=== PATIENT | male | born 1945 | race Caucasian/White ===

== ENCOUNTER 2022-02-11 09:13 | Inpatient (IN) | payer MEDICARE ==
[2022-02-11] MEDS ORDERED: IPRATROPIUM 0.5 MG/2.5 ML NEBU INHALATION STA (09:20)
[2022-02-11] MEDS ORDERED: ALBUTEROL NEBULIZED 2.5 MG/3 ML INHALATION STA (09:20)
--- NOTE | 2022-02-11 09:50 | ED ---
General Adult HPI - General Chief complaint: Shortness of Breath Stated complaint: ARTHUR Time Seen by Provider: 02/11/22 09:14 Source: patient, EMS, RN notes reviewed, old records reviewed Mode of arrival: EMS Limitations: altered mental status - History of Present Illness Initial comments: 76-year-old male, poor historian presenting with dyspnea, confusion, and recently tested positive for coronavirus. Apparently the patient tested positive today. He is on oxygen at baseline secondary to COPD. Patient's home environment was questionable and the ability to take care of himself at home was brought up by paramedics. Patient himself does report cough and dyspnea. He has not been vaccinated against coronavirus. - Related Data Home Medications Medication Instructions Recorded Confirmed ALPRAZolam [Xanax] 2 mg PO BID 02/11/22 02/11/22 Gabapentin [Neurontin] 300 mg PO QID 02/11/22 02/11/22 HYDROcodone/APAP 10-325MG [[place] 1 tab PO TID 02/11/22 02/11/22 10-325] Ipratropium-Albuterol Nebulize 3 ml INHALATION RT-Q6H PRN 02/11/22 02/11/22 [Duoneb 0.5 mg-3 mg/3 ml Soln] Tamsulosin HCl [Flomax] 0.4 mg PO DAILY 02/11/22 02/11/22 carvediloL [Coreg] 25 mg PO BID 02/11/22 02/11/22 lisinopriL [Prinivil] 10 mg PO DAILY 02/11/22 02/11/22 predniSONE [Deltasone] 20 mg PO DAILY 02/11/22 02/11/22 Allergies Allergy/AdvReac Type Severity Reaction Status Date / Time Unable to Assess Allergy Verified 02/11/22 09:43 Review of Systems ROS Statement: Those systems with pertinent positive or pertinent negative responses have been documented in the HPI. ROS Other: All systems not noted in ROS Statement are negative. Past Medical History Past Medical History: Unable to Obtain, COPD History of Any Multi-Drug Resistant Organisms: None Reported Past Surgical History: No Surgical Hx Reported Past Psychological History: Unable to Obtain Smoking Status: Former smoker Past Alcohol Use History: None Reported Past Drug Use History: None Reported General Exam Limitations: no limitations General appearance: alert, in distress, cachectic Head exam: Present: atraumatic, normocephalic Eye exam: Present: normal appearance, PERRL ENT exam: Present: mucous membranes dry Neck exam: Present: normal inspection. Absent: tenderness, meningismus Respiratory exam: Present: respiratory distress, wheezes, decreased breath carter nds Cardiovascular Exam: Present: normal rhythm, tachycardia GI/Abdominal exam: Present: soft. Absent: distended, tenderness, guarding Extremities exam: Present: normal inspection, normal capillary refill. Absent: pedal edema, calf tenderness Neurological exam: Present: alert. Absent: motor sensory deficit Skin exam: Present: warm, dry, pallor Course Vital Signs 02/11/22 02/11/22 02/11/22 09:16 09:59 10:11 Temperature 98.2 F Pulse Rate 112 H 105 H 102 H Respiratory 30 H 32 H Rate Blood Pressure 101/64 O2 Sat by Pulse 97 Oximetry EKG Findings - EKG Comments: EKG Findings:: Sinus tachycardia ventricular rate of 110, VA interval 151, QRS duration 105, QTC [address] segment elevation. Medical Decision Making - Medical Decision Making 76-year-old male history of oxygen dependent COPD presenting with cough, dyspnea, worsening respiratory complaints. Patient requires increased oxygen supplementation. He does currently have coronavirus test positive today. He has diminished air entry bilaterally with moderate respiratory distress. Treated with albuterol, Atrovent, steroids. Will be admitted for COPD exacerbation. Initially on chest x-ray does show concern for fluid overload with significantly elevated BNP at 7600. He is given a dose Lasix in the emergency department as well. Admitted for multifactorial dyspnea, coronavirus pneumonia, pulmonary edema, COPD. Case discussed with [facility] physician [facility]. - Lab Data Result diagrams: 02/11/22 09:59 02/11/22 09:59 Lab Results 02/11/22 02/11/22 02/11/22 Range/Units 09:59 09:59 09:59 WBC 12.5 H (3.8-10.6) k/uL RBC 3.95 L (4.30-5.90) m/uL Hgb 11.9 L (13.0-17.5) gm/dL Hct 36.8 L (39.0-53.0) % MCV 93.2 (80.0-100.0) fL MCH 30.2 (25.0-35.0) pg MCHC 32.4 (31.0-37.0) g/dL RDW 13.9 (11.5-15.5) % Plt Count 252 (150-450) k/uL MPV 8.0 Neutrophils % 88 % Lymphocytes % 7 % Monocytes % 3 % Eosinophils % 0 % Basophils % 0 % Neutrophils # 11.1 H (1.3-7.7) k/uL Lymphocytes # 0.9 L (1.0-4.8) k/uL Monocytes # 0.4 (0-1.0) k/uL Eosinophils # 0.0 (0-0.7) k/uL Basophils # 0.0 (0-0.2) k/uL PT 11.9 (9.0-12.0) sec INR 1.1 (<1.2) APTT 26.3 (22.0-30.0) sec VBG pH (7.31-7.41) VBG pCO2 (37-51) mmHg VBG HCO3 (24-28) mmol/L Sodium 130 L (137-145) mmol/L Potassium 3.9 (3.5-5.1) mmol/L Chloride 92 L (98-107) mmol/L Carbon Dioxide 25 (22-30) mmol/L Anion Gap 13 mmol/L BUN 24 H (9-20) mg/dL Creatinine 1.06 (0.66-1.25) mg/dL Est GFR (CKD-EPI)AfAm 80 (>60 ml/min/1.73 sqM) Est GFR (CKD-EPI)NonAf 69 (>60 ml/min/1.73 sqM) Glucose 75 (74-99) mg/dL Plasma Lactic Acid Rogerio (0.7-2.0) mmol/L Calcium 7.5 L (8.4-10.2) mg/dL Magnesium 1.3 L (1.6-2.3) mg/dL Total Bilirubin 0.7 (0.2-1.3) mg/dL AST 51 (17-59) U/L ALT 16 (4-49) U/L Alkaline Phosphatase 38 (38-126) U/L NT-Pro-B Natriuret Pep pg/mL Total Protein 5.9 L (6.3-8.2) g/dL Albumin 3.4 L (3.5-5.0) g/dL Coronavirus (PCR) (Not Detectd) 02/11/22 02/11/22 02/11/22 Range/Units 09:59 09:59 09:59 WBC (3.8-10.6) k/uL RBC (4.30-5.90) m/uL Hgb (13.0-17.5) gm/dL Hct (39.0-53.0) % MCV (80.0-100.0) fL MCH (25.0-35.0) pg MCHC (31.0-37.0) g/dL RDW (11.5-15.5) % Plt Count (150-450) k/uL MPV Neutrophils % % Lymphocytes % % Monocytes % % Eosinophils % % Basophils % % Neutrophils # (1.3-7.7) k/uL Lymphocytes # (1.0-4.8) k/uL Monocytes # (0-1.0) k/uL Eosinophils # (0-0.7) k/uL Basophils # (0-0.2) k/uL PT (9.0-12.0) sec INR (<1.2) APTT (22.0-30.0) sec VBG pH (7.31-7.41) VBG pCO2 (37-51) mmHg VBG HCO3 (24-28) mmol/L Sodium (137-145) mmol/L Potassium (3.5-5.1) mmol/L Chloride (98-107) mmol/L Carbon Dioxide (22-30) mmol/L Anion Gap mmol/L BUN (9-20) mg/dL Creatinine (0.66-1.25) mg/dL Est GFR (CKD-EPI)AfAm (>60 ml/min/1.73 sqM) Est GFR (CKD-EPI)NonAf (>60 ml/min/1.73 sqM) Glucose (74-99) mg/dL Plasma Lactic Acid Rogerio 1.0 (0.7-2.0) mmol/L Calcium (8.4-10.2) mg/dL Magnesium (1.6-2.3) mg/dL Total Bilirubin (0.2-1.3) mg/dL AST (17-59) U/L ALT (4-49) U/L Alkaline Phosphatase (38-126) U/L NT-Pro-B Natriuret Pep 7610 pg/mL Total Protein (6.3-8.2) g/dL Albumin (3.5-5.0) g/dL Coronavirus (PCR) Detected A (Not Detectd) 02/11/22 Range/Units 09:59 WBC (3.8-10.6) k/uL RBC (4.30-5.90) m/uL Hgb (13.0-17.5) gm/dL Hct (39.0-53.0) % MCV (80.0-100.0) fL MCH (25.0-35.0) pg MCHC (31.0-37.0) g/dL RDW (11.5-15.5) % Plt Count (150-450) k/uL MPV Neutrophils % % Lymphocytes % % Monocytes % % Eosinophils % % Basophils % % Neutrophils # (1.3-7.7) k/uL Lymphocytes # (1.0-4.8) k/uL Monocytes # (0-1.0) k/uL Eosinophils # (0-0.7) k/uL Basophils # (0-0.2) k/uL PT (9.0-12.0) sec INR (<1.2) APTT (22.0-30.0) sec VBG pH 7.37 (7.31-7.41) VBG pCO2 51 (37-51) mmHg VBG HCO3 29 H (24-28) mmol/L Sodium (137-145) mmol/L Potassium (3.5-5.1) mmol/L Chloride (98-107) mmol/L Carbon Dioxide (22-30) mmol/L Anion Gap mmol/L BUN (9-20) mg/dL Creatinine (0.66-1.25) mg/dL Est GFR (CKD-EPI)AfAm (>60 ml/min/1.73 sqM) Est GFR (CKD-EPI)NonAf (>60 ml/min/1.73 sqM) Glucose (74-99) mg/dL Plasma Lactic Acid Rogerio (0.7-2.0) mmol/L Calcium (8.4-10.2) mg/dL Magnesium (1.6-2.3) mg/dL Total Bilirubin (0.2-1.3) mg/dL AST (17-59) U/L ALT (4-49) U/L Alkaline Phosphatase (38-126) U/L NT-Pro-B Natriuret Pep pg/mL Total Protein (6.3-8.2) g/dL Albumin (3.5-5.0) g/dL Coronavirus (PCR) (Not Detectd) Critical Care Time Critical Care Time: Yes Total Critical Care Time: 35 Disposition Clinical Impression: Acute exacerbation of chronic obstructive pulmonary disease, COVID-19 Disposition: ADMITTED IP TO THIS [facility] Condition: Stable Is patient prescribed a controlled substance at d/c from ED?: No Referrals: Nonstaff,Physician [REFERRING] - 1-2 days Time of Disposition: 11:55
[2022-02-11 11:03] LABS: VBG PH 7.37 (7.31-7.41)
[2022-02-11 11:06] LABS: Albumin 3.4 g/dL (3.5-5.0); Calcium 7.5 mg/dL (8.4-10.2); Magnesium 1.3 mg/dL (1.6-2.3); Potassium 3.9 mmol/L (3.5-5.1); Total Bilirubin 0.7 mg/dL (0.2-1.3); Total Protein 5.9 g/dL (6.3-8.2)
[2022-02-11 11:10] LABS: Basophils % (A) 0 %; Eosinophils % (A) 0 %; HCT 36.8 % (39.0-53.0); HGB 11.9 gm/dL (13.0-17.5); INR 1.1 (<1.2); Lymphocytes # (A) 0.9 k/uL (1.0-4.8); Lymphocytes % (A) 7 %; MCH 30.2 pg (25.0-35.0); MCHC 32.4 g/dL (31.0-37.0); MCV 93.2 fL (80.0-100.0); Monocytes # (A) 0.4 k/uL (0-1.0); Monocytes % (A) 3 %; Neutrophils # (A) 11.1 k/uL (1.3-7.7); Neutrophils % (A) 88 %; Partial Thromboplastin Time 26.3 sec (22.0-30.0); Platelet Count 252 k/uL (150-450); Prothrombin Time 11.9 sec (9.0-12.0); RBC 3.95 m/uL (4.30-5.90); RDW 13.9 % (11.5-15.5); WBC 12.5 k/uL (3.8-10.6)
--- NOTE | 2022-02-11 11:20 | XR ---
EXAMINATION TYPE: XR chest 1V portable DATE OF EXAM: 02/11/2022 Comparison: None Clinical History: 76-year-old male cough/krissy Findings: Patient is rotated towards the right. Heart mildly enlarged. Diffuse interstitial and patchy opacitie s. Possible trace effusions. Patient's chin obscures the apices. Impression: Rotated exam. Mild cardiomegaly, diffuse interstitial changes, patchy bilateral opacities, and likely trace effusions. Correlate for CHF with patchy pulmonary edema. Underlying infiltrate should be incl uded on a clinical basis.
[2022-02-11] MEDS ORDERED: FUROSEMIDE 10 MG/ML 2 ML VIAL IV STA (11:48)
[2022-02-11] MEDS ORDERED: ACETAMINOPHEN TAB 325 MG TAB PO PRN (11:52)
[2022-02-11] MEDS ORDERED: NALOXONE 0.4 MG/ML 1 ML VIAL IV PRN ×2 (11:52→15:49)
[2022-02-11] MEDS: IPRATROPIUM-ALBUTEROL 3 ML NEB INHALATION SCH ×2 (13:59→15:09)
[2022-02-11] MEDS: DEXAMETHASONE SOD PHOSPHATE 10 MG/ML 1 ML VIAL IV STA ×2 (15:55→15:59)
[2022-02-11] MEDS ORDERED: FUROSEMIDE 10 MG/ML 2 ML VIAL IV ONE (15:59)
--- NOTE | 2022-02-11 16:04 | P.HPIM ---
History of Present Illness H&P Date: 02/11/22 Chief Complaint: sob 76-year-old male, with history of COPD, hypertension, BPH, poor historian, not sure if he is reliable presenting with dyspnea, confusion, and recently tested positive for coronavirus. He was in contact with his who was sick with it. He has been having cough as well as increasing shortness of breath. He uses oxygen at 2 L at baseline for his COPD. He denied any chest pain. No other pain. No nausea or vomiting. No fevers or chills. No focal weakness or numbness. No diarrhea. Also denied urinary symptoms. In the emergency department he was found to be significantly hypoxic with O2 saturations in the 70s, was placed under percent nonrebreather mask. Labs are remarkable for leukocytosis at 12.5, hemoglobin 11.9, hematocrit 36.8, platelet count 252, sodium 130, potassium 3.9, chloride 92, bicarb 25, BUN 24, creatinine 1.06, BNP 7600, magnesium 1.3, calcium 7.5. Chest x-ray showed cardiomegaly with diffuse interstitial opacities consistent with CHF versus pneumonia. Covid tested positive. - Review of Systems Unobtainable due to confusion. Past Medical History Past Medical History: Unable to Obtain, COPD History of Any Multi-Drug Resistant Organisms: None Reported Past Surgical History: No Surgical Hx Reported Past Psychological History: Unable to Obtain Smoking Status: Former smoker Past Alcohol Use History: None Reported Past Drug Use History: None Reported Medications and Allergies Home Medications Medication Instructions Recorded Confirmed Type ALPRAZolam [Xanax] 2 mg PO BID 02/11/22 02/11/22 History Gabapentin [Neurontin] 300 mg PO QID 02/11/22 02/11/22 History HYDROcodone/APAP 10-325MG [[place] 1 tab PO TID 02/11/22 02/11/22 History 10-325] Ipratropium-Albuterol Nebulize 3 ml INHALATION RT-Q6H PRN 02/11/22 02/11/22 History [Duoneb 0.5 mg-3 mg/3 ml Soln] Tamsulosin HCl [Flomax] 0.4 mg PO DAILY 02/11/22 02/11/22 History carvediloL [Coreg] 25 mg PO BID 02/11/22 02/11/22 History lisinopriL [Prinivil] 10 mg PO DAILY 02/11/22 02/11/22 History predniSONE [Deltasone] 20 mg PO DAILY 02/11/22 02/11/22 History Allergies Allergy/AdvReac Type Severity Reaction Status Date / Time Unable to Assess Allergy Verified 02/11/22 09:43 Physical Exam Vitals: Vital Signs Temp Pulse Resp BP Pulse Ox 02/11/22 15:20 96 02/11/22 15:09 98 02/11/22 14:00 101 H 21 126/62 02/11/22 13:30 98 24 103/65 99 02/11/22 13:00 92 23 96/58 100 02/11/22 12:30 96 22 110/61 100 02/11/22 12:00 98 18 103/60 100 02/11/22 10:11 102 H 02/11/22 09:59 105 H 32 H 02/11/22 09:16 98.2 F 112 H 30 H 101/64 97 Intake and Output 02/11/22 02/11/22 02/11/22 06:59 14:59 22:59 Other: Weight 71.668 kg Constitutional: No acute distress, conversant, pleasant Eyes:Anicteric sclerae, moist conjunctiva, no lid-lag, PERRLA, ENMT: Oropharynx clear, no erythema, exudates Neck: Supple, FROM, no masses, or JVD, No carotid bruits, No thyromegaly Lungs: Bilateral wheezing and rhonchi, Clear to percussion, Normal respiratory effort, no accessory muscle use Cardiovascular: Heart regular in rate and rhythm, No murmurs, gallops, or rubs, No peripheral edema Abdominal: Soft, Nontender, no guarding, rebound or rigidity, Normoactive bowel sounds, No hepatomegaly, No splenomegaly, No palpable mass Skin: Normal temperature, tone, texture, turgor, no induration, No subcutaneous nodules, No rash, lesions, No ulcers Extremities: No digital cyanosis, No clubbing, Pedal pulses intact and symmetrical, Radial pulses intact and symmetrical, No calf tenderness Psychiatric: Alert and oriented to person, place and time, appropriate affect, intact judgement Neuro: Muscles Strength 5/5 in all 4 extremities, Sensation to light touch grossly present throughout, Cranial nerves II-XII grossly intact, no focal sensory deficits Results CBC & Chem 7: 02/11/22 09:59 02/11/22 09:59 Labs: Abnormal Lab Results - Last 24 Hours (Table) 02/11/22 02/11/22 02/11/22 Range/Units 09:59 09:59 09:59 WBC 12.5 H (3.8-10.6) k/uL RBC 3.95 L (4.30-5.90) m/uL Hgb 11.9 L (13.0-17.5) gm/dL Hct 36.8 L (39.0-53.0) % Neutrophils # 11.1 H (1.3-7.7) k/uL Lymphocytes # 0.9 L (1.0-4.8) k/uL VBG HCO3 (24-28) mmol/L Sodium 130 L (137-145) mmol/L Chloride 92 L (98-107) mmol/L BUN 24 H (9-20) mg/dL Calcium 7.5 L (8.4-10.2) mg/dL Magnesium 1.3 L (1.6-2.3) mg/dL Total Protein 5.9 L (6.3-8.2) g/dL Albumin 3.4 L (3.5-5.0) g/dL Coronavirus (PCR) Detected A (Not Detectd) 02/11/22 Range/Units 09:59 WBC (3.8-10.6) k/uL RBC (4.30-5.90) m/uL Hgb (13.0-17.5) gm/dL Hct (39.0-53.0) % Neutrophils # (1.3-7.7) k/uL Lymphocytes # (1.0-4.8) k/uL VBG HCO3 29 H (24-28) mmol/L Sodium (137-145) mmol/L Chloride (98-107) mmol/L BUN (9-20) mg/dL Calcium (8.4-10.2) mg/dL Magnesium (1.6-2.3) mg/dL Total Protein (6.3-8.2) g/dL Albumin (3.5-5.0) g/dL Coronavirus (PCR) (Not Detectd) Assessment and Plan Plan: Acute on chronic hypoxemic respiratory failure Acute COPD exacerbation COVID-19 pneumonia Admit to inpatient Check procalcitonin, blood cultures Oxygen to keep saturations above 92% Pulmonary consultation Steroids and bronchodilators Acute CHF exacerbation with elevated BNP Unknown type Check echocardiogram Lasix 20 mg IV 1 Hypomagnesemia Replace Follow in a.m. Essential hypertension Anxiety Stable Resume meds DVT prophylaxis Lovenox subcu Admit to inpatient, expected length of stay within 2 midnights
[2022-02-11] MEDS: HYDROcodone/APAP 10-325MG 1 EACH TAB PO SCH ×2 (16:54→21:40)
[2022-02-11] MEDS: GABAPENTIN 300 MG CAP PO SCH ×2 (16:56→21:40)
[2022-02-11] MEDS: MAGNESIUM SULFATE-D5W PMX 1 GM in DEXTROSE/WATER 1 100ML.BAG IVPB SCH ×2 (17:48→20:06)
[2022-02-11] MEDS: carvediloL 12.5 MG TAB PO SCH (17:48)
[2022-02-11] MEDS: methylPREDNISolone SOD SUCCI 125 MG/2 ML VIAL IV SCH ×2 (17:49→23:27)
[2022-02-11] MEDS: ENOXAPARIN 40 MG/0.4 ML SYRINGE SQ SCH (17:51)
[2022-02-11] MEDS: TIOTROPIUM 2.5 MCG INHALER INHALATION SCH (20:01)
[2022-02-11] MEDS: ALBUTEROL HFA INHALER INHALATION SCH (20:02)
[2022-02-11] MEDS ORDERED: FUROSEMIDE 10 MG/ML 2 ML VIAL IV SCH (21:00)
[2022-02-12] MEDS: ALBUTEROL HFA INHALER INHALATION SCH ×6 (00:40→19:16)
[2022-02-12 00:57] LABS: ABG PCO2 53 mmHg (35-45); ABG PH 7.34 (7.35-7.45); ABG PO2 70 mmHg (83-108); Allen Test Performed? Yes
[2022-02-12 00:58] LABS: ABG Base Excess 2.9 mmol/L; ABG HCO3 29 mmol/L (21-25); ABG TCO2 30 mmol/L (19-24)
[2022-02-12] MEDS: carvediloL 12.5 MG TAB PO SCH ×2 (06:53→15:36)
[2022-02-12 08:39] LABS: Basophils % (A) 0 %; Eosinophils % (A) 0 %; HCT 36.8 % (39.0-53.0); HGB 11.7 gm/dL (13.0-17.5); Lymphocytes # (A) 0.4 k/uL (1.0-4.8); Lymphocytes % (A) 5 %; MCH 30.2 pg (25.0-35.0); MCHC 31.9 g/dL (31.0-37.0); MCV 94.9 fL (80.0-100.0); Mean Platelet Volume 7.5; Monocytes # (A) 0.2 k/uL (0-1.0); Monocytes % (A) 2 %; Neutrophils # (A) 9.1 k/uL (1.3-7.7); Neutrophils % (A) 93 %; Platelet Count 236 k/uL (150-450); RBC 3.88 m/uL (4.30-5.90); RDW 14.1 % (11.5-15.5); WBC 9.8 k/uL (3.8-10.6)
[2022-02-12 08:42] LABS: ALT 24 U/L (4-49); AST 74 U/L (17-59); African American GFR (CKD) >90 (>60 ml/min/1.73 sqM); Albumin 3.1 g/dL (3.5-5.0); Alkaline Phosphatase 45 U/L (38-126); Anion Gap 11 mmol/L; Blood Urea Nitrogen 26 mg/dL (9-20); Calcium 7.4 mg/dL (8.4-10.2); Carbon Dioxide 29 mmol/L (22-30); Chloride 93 mmol/L (98-107); Glucose 111 mg/dL (74-99); Magnesium 1.9 mg/dL (1.6-2.3); Non-African American GFR(CKD) 84 (>60 ml/min/1.73 sqM); Sodium 133 mmol/L (137-145); Total Bilirubin 0.6 mg/dL (0.2-1.3); Total Protein 5.6 g/dL (6.3-8.2)
[2022-02-12] MEDS: TIOTROPIUM 2.5 MCG INHALER INHALATION SCH (08:51)
[2022-02-12] MEDS: FUROSEMIDE 10 MG/ML 4 ML VIAL IV SCH ×2 (08:55→20:34)
[2022-02-12] MEDS: methylPREDNISolone SOD SUCCI 125 MG/2 ML VIAL IV SCH ×2 (08:55→15:36)
[2022-02-12] MEDS: HYDROcodone/APAP 10-325MG 1 EACH TAB PO SCH ×3 (08:55→20:33)
[2022-02-12] MEDS: ENOXAPARIN 40 MG/0.4 ML SYRINGE SQ SCH (08:55)
[2022-02-12] MEDS: TAMSULOSIN 0.4 MG CAP.ER.24H PO SCH (08:55)
[2022-02-12] MEDS: lisinopriL 10 MG TAB PO SCH (08:56)
[2022-02-12] MEDS: GABAPENTIN 300 MG CAP PO SCH ×4 (08:56→20:34)
--- NOTE | 2022-02-12 12:36 | CA ---
Transthoracic Echo Report Name: Erik Mckeon Age: 76 Gender: M : 1945 Exam Date: 02/12/2022 09:41 Exam Location: [place] [facility] Ht (in): 68 Wt (lb): 154 Ordering Physician: Pankaj Aceves MD Attending/Referring Phys: [id number], Ketan Console Attendant Vita Coombs RDCS Procedure CPT: Indications: chf Cardiac Hx: Covid, severe copd Technical Quality: Poor Contrast 1: Total Dose (mL): Contrast 2: Total Dose (mL): MEASUREMENTS (Male / Female) Normal Values 2D ECHO LV Diastolic Diameter PLAX 2.2 cm 4.2 - 5.9 / 3.9 - 5.3 cm LV Systolic Diameter PLAX 1.2 cm IVS Diastolic Thickness 1.0 cm 0.6 - 1.0 / 0.6 - 0.9 cm LVPW Diastolic Thickness 1.4 cm 0.6 - 1.0 / 0.6 - 0.9 cm LV Relative Wall Thickness 1.1 DOPPLER TR Peak Velocity 219.2 cm/s TR Peak Gradient 19.2 mmHg Right Ventricular Systolic Press 24.2 mmHg FINDINGS Left Ventricle Left ventricular ejection fraction is estimated at 55-60 %. Right Ventricle Limited images however right ventricle appears mild to moderately dilated. Right Atrium Left Atrium Mitral Valve Aortic Valve Tricuspid Valve Pulmonic Valve Pericardium No pericardial effusion. Aorta CONCLUSIONS Limited 2-D echo. Normal left ventricular EF 55-60% Mild to moderately dilated right ventricle No pericardial effusion Previewed by: Dr. Nish Cross DO (Electronically Signed) Final Date: 12 February 2022 12:36
[2022-02-12] MEDS: LEVOFLOXACIN 500 MG TAB PO SCH (13:08)
--- NOTE | 2022-02-12 14:12 | P.PN ---
Subjective Progress Note Date: 02/12/22 Principal diagnosis: sob Patient is feeling a lot better today compared to yesterday. He is still having a little shortness of breath. No chest pain. No fevers or chills. Oxygen supplements down to 5 L from 100% yesterday. He is on 2 L at home. Objective - Vital Signs Vital signs: Vital Signs Temp 97.8 F 02/12/22 08:00 Pulse 79 02/12/22 08:00 Resp 18 02/12/22 12:16 BP 122/60 02/12/22 08:00 Pulse Ox 93 L 02/12/22 08:51 FiO2 Intake & Output 02/11/22 02/12/22 02/12/22 18:59 06:59 18:59 Weight 71.668 kg 70 kg Other: # Voids 1 - Exam Constitutional: No acute distress, conversant, pleasant Eyes:Anicteric sclerae, moist conjunctiva, no lid-lag, PERRLA, ENMT: Oropharynx clear, no erythema, exudates Neck: Supple, FROM, no masses, or JVD, No carotid bruits, No thyromegaly Lungs: Bilateral rhonchi and scattered wheezes, Clear to percussion, Normal respiratory effort, no accessory muscle use Cardiovascular: Heart regular in rate and rhythm, No murmurs, gallops, or rubs, No peripheral edema Abdominal: Soft, Nontender, no guarding, rebound or rigidity, Normoactive bowel sounds, No hepatomegaly, No splenomegaly, No palpable mass Skin: Normal temperature, tone, texture, turgor, no induration, No subcutaneous nodules, No rash, lesions, No ulcers Extremities: No digital cyanosis, No clubbing, Pedal pulses intact and symmetrical, Radial pulses intact and symmetrical, No calf tenderness Psychiatric: Alert and oriented to person, place and time, appropriate affect, intact judgement Neuro: Muscles Strength 5/5 in all 4 extremities, Sensation to light touch grossly present throughout, Cranial nerves II-XII grossly intact, no focal sensory deficits - Labs CBC & Chem 7: 02/12/22 07:41 02/12/22 07:41 Labs: Abnormal Lab Results - Last 24 Hours (Table) 02/11/22 02/11/22 02/12/22 Range/Units 17:07 17:07 00:44 RBC (4.30-5.90) m/uL Hgb (13.0-17.5) gm/dL Hct (39.0-53.0) % Neutrophils # (1.3-7.7) k/uL Lymphocytes # (1.0-4.8) k/uL ABG pH 7.34 L (7.35-7.45) ABG pCO2 53 H (35-45) mmHg ABG pO2 70 L (83-108) mmHg ABG HCO3 29 H (21-25) mmol/L ABG Total CO2 30 H (19-24) mmol/L ABG O2 Saturation 93.0 L (94-97) % Sodium (137-145) mmol/L Chloride (98-107) mmol/L BUN (9-20) mg/dL Glucose (74-99) mg/dL Calcium (8.4-10.2) mg/dL AST (17-59) U/L Troponin I 1.670 H* (0.000-0.034) ng/mL Total Protein (6.3-8.2) g/dL Albumin (3.5-5.0) g/dL Procalcitonin 35.70 H (0.02-0.09) ng/mL 02/12/22 02/12/22 Range/Units 07:41 07:41 RBC 3.88 L (4.30-5.90) m/uL Hgb 11.7 L (13.0-17.5) gm/dL Hct 36.8 L (39.0-53.0) % Neutrophils # 9.1 H (1.3-7.7) k/uL Lymphocytes # 0.4 L (1.0-4.8) k/uL ABG pH (7.35-7.45) ABG pCO2 (35-45) mmHg ABG pO2 (83-108) mmHg ABG HCO3 (21-25) mmol/L ABG Total CO2 (19-24) mmol/L ABG O2 Saturation (94-97) % Sodium 133 L (137-145) mmol/L Chloride 93 L (98-107) mmol/L BUN 26 H (9-20) mg/dL Glucose 111 H (74-99) mg/dL Calcium 7.4 L (8.4-10.2) mg/dL AST 74 H (17-59) U/L Troponin I (0.000-0.034) ng/mL Total Protein 5.6 L (6.3-8.2) g/dL Albumin 3.1 L (3.5-5.0) g/dL Procalcitonin (0.02-0.09) ng/mL Assessment and Plan Plan: Acute on chronic hypoxemic respiratory failure Acute COPD exacerbation COVID-19 pneumonia Procalcitonin elevated levaquin added 02/12 Follow blood cultures Oxygen to keep saturations above 92% Pulmonary following Steroids and bronchodilators Acute diastolic CHF exacerbation with elevated BNP Echocardiogram showing normal EF with right sided elevated pressures likely due to copd Lasix 40 mg IV bid Hypomagnesemia Replaced Essential hypertension Anxiety Stable Resume meds DVT prophylaxis Lovenox subcu
--- NOTE | 2022-02-12 14:17 | P.CNPUL ---
History of Present Illness Consult date: 02/12/22 Requesting physician: Pankaj Aceves Reason for consult: dyspnea Chief complaint: Shortness of breath, weakness History of present illness: This is a 76-year-old male patient was a poor historian was brought into the emergency room yesterday with confusion, shortness of breath and positive for COVID-19. He has not vaccinated. His is also positive and hospitalized here. He has a history of oxygen dependent COPD and, hypertension, BPH, anxiety. Chest x-ray reveals mild cardiomegaly, diffuse interstitial changes, patchy bilateral opacities and trace effusions. Echocardiogram revealed normal ejection fraction 55-60%. White count 9.8. Hemoglobin 11.7. Sodium 133. Potassium 4.0. Bicarb 29. BUN 26. Creatinine 0.90. Troponin 1.67. Pro- calcitonin 35.7. Ornelas virus by PCR positive. Arterial blood gases were drawn on 40% FiO2 with a P O2 of 70, pCO2 53, pH 7.34. He is seen in consultation on the selective care unit. He is currently sitting up in bed. Awake and alert. Confused at times. Difficult to obtain accurate information from him. He is currently maintaining O2 saturations in the low 90s on 5 L high flow nasal cannula. He is afebrile. Hemodynamically stable. Review of Systems ROS unobtainable: due to mental status Past Medical History Past Medical History: Unable to Obtain, COPD History of Any Multi-Drug Resistant Organisms: None Reported Past Surgical History: No Surgical Hx Reported Past Anesthesia/Blood Transfusion Reactions: No Reported Reaction Past Psychological History: Unable to Obtain Smoking Status: Former smoker Past Alcohol Use History: None Reported Past Drug Use History: None Reported Medications and Allergies Home Medications Medication Instructions Recorded Confirmed Type ALPRAZolam [Xanax] 2 mg PO BID 02/11/22 02/11/22 History Gabapentin [Neurontin] 300 mg PO QID 02/11/22 02/11/22 History HYDROcodone/APAP 10-325MG [[place] 1 tab PO TID 02/11/22 02/11/22 History 10-325] Ipratropium-Albuterol Nebulize 3 ml INHALATION RT-Q6H PRN 02/11/22 02/11/22 History [Duoneb 0.5 mg-3 mg/3 ml Soln] Tamsulosin HCl [Flomax] 0.4 mg PO DAILY 02/11/22 02/11/22 History carvediloL [Coreg] 25 mg PO BID 02/11/22 02/11/22 History lisinopriL [Prinivil] 10 mg PO DAILY 02/11/22 02/11/22 History predniSONE [Deltasone] 20 mg PO DAILY 02/11/22 02/11/22 History Allergies Allergy/AdvReac Type Severity Reaction Status Date / Time Unable to Assess Allergy Verified 02/11/22 09:43 Physical Exam Vitals: Vital Signs Temp Pulse Pulse Resp BP BP Pulse Ox 02/12/22 12:16 18 02/12/22 08:51 93 L 02/12/22 08:00 97.8 F 79 18 122/60 91 L 02/12/22 04:00 98.0 F 80 20 140/64 90 L 02/12/22 00:42 22 02/12/22 00:00 97.6 F 76 22 101/54 91 L 02/11/22 22:00 110 H 19 112/70 95 02/11/22 20:02 91 L 02/11/22 20:00 98.2 F 117 H 19 110/68 94 L 02/11/22 18:18 97.8 F 63 18 107/70 88 L 02/11/22 15:20 96 02/11/22 15:09 98 Intake and Output 02/11/22 02/12/22 02/12/22 22:59 06:59 14:59 Other: # Voids 1 Weight 71.668 kg 70 kg GENERAL EXAM: Alert, confused, disheveled, 76-year-old male patient, 5 liters nasal cannula, fairly comfortable in no apparent distress. HEAD: Normocephalic. EYES: Normal reaction of pupils, equal size. NOSE: Clear with pink turbinates. THROAT: No erythema or exudates. NECK: No masses, no JVD. CHEST: No chest wall deformity. LUNGS: Equal air entry with crackles in the bilateral bases. CVS: S1 and S2 normal with no audible murmur, regular rhythm. ABDOMEN: No hepatosplenomegaly, normal bowel sounds, no guarding or rigidity. SPINE: No scoliosis or deformity SKIN: No rashes CENTRAL NERVOUS SYSTEM: No focal deficits, tone is normal in all 4 extremities. EXTREMITIES: There is no peripheral edema. No clubbing, no cyanosis. Peripheral pulses are intact. Results - Laboratory Findings CBC and BMP: 02/12/22 07:41 02/12/22 07:41 ABG ABG pH 7.34 (7.35-7.45) L 02/12/22 00:44 ABG pCO2 53 mmHg (35-45) H 02/12/22 00:44 ABG pO2 70 mmHg (83-108) L 02/12/22 00:44 ABG O2 Saturation 93.0 % (94-97) L 02/12/22 00:44 PT/INR, D-dimer PT 11.9 sec (9.0-12.0) 02/11/22 09:59 INR 1.1 (<1.2) 02/11/22 09:59 Abnormal lab findings: Abnormal Labs 02/11/22 02/11/22 02/11/22 09:59 09:59 09:59 WBC 12.5 H RBC 3.95 L Hgb 11.9 L Hct 36.8 L Neutrophils # 11.1 H Lymphocytes # 0.9 L ABG pH ABG pCO2 ABG pO2 ABG HCO3 ABG Total CO2 ABG O2 Saturation VBG HCO3 Sodium 130 L Chloride 92 L BUN 24 H Glucose Calcium 7.5 L Magnesium 1.3 L AST Troponin I Total Protein 5.9 L Albumin 3.4 L Procalcitonin Coronavirus (PCR) Detected A 02/11/22 02/11/22 02/11/22 09:59 17:07 17:07 WBC RBC Hgb Hct Neutrophils # Lymphocytes # ABG pH ABG pCO2 ABG pO2 ABG HCO3 ABG Total CO2 ABG O2 Saturation VBG HCO3 29 H Sodium Chloride BUN Glucose Calcium Magnesium AST Troponin I 1.670 H* Total Protein Albumin Procalcitonin 35.70 H Coronavirus (PCR) 02/12/22 02/12/22 02/12/22 00:44 07:41 07:41 WBC RBC 3.88 L Hgb 11.7 L Hct 36.8 L Neutrophils # 9.1 H Lymphocytes # 0.4 L ABG pH 7.34 L ABG pCO2 53 H ABG pO2 70 L ABG HCO3 29 H ABG Total CO2 30 H ABG O2 Saturation 93.0 L VBG HCO3 Sodium 133 L Chloride 93 L BUN 26 H Glucose 111 H Calcium 7.4 L Magnesium AST 74 H Troponin I Total Protein 5.6 L Albumin 3.1 L Procalcitonin Coronavirus (PCR) - Diagnostic Findings Chest x-ray: image reviewed Assessment and Plan Assessment: Generalized weakness and confusion secondary to COVID-19 infection, cannot rule out underlying bacterial infection with pro-calcitonin 35.7 Acute on chronic hypoxemic respiratory failure secondary to COVID-19 pneumonia/diastolic congestive heart failure Elevated troponin. Limited echocardiogram revealed preserved left ventricular systolic function Advanced oxygen-dependent chronic obstructive pulmonary disease Hypertension History of anxiety BPH Plan: The patient was seen and evaluated Chest x-ray, echo, labs and medications reviewed Continue Symbicort, Spiriva, albuterol, IV Solu-Medrol Continue Lasix 40 mg IV every 12 hours Add Levaquin 500 mg daily Check a d-dimer Lovenox for DVT prophylaxis Repeat troponin Urinalysis Titrate the FiO2 as tolerated We will continue to follow and make further recommendations based on his clinical status I have personally seen and examined the patient, performed the documentation and the assessment and plan as written. Number of minutes spent on the visit: 20.
[2022-02-12] MEDS: SYMBICORT 160-4.5 MCG INHALER INHALATION SCH (19:16)
[2022-02-13] MEDS: methylPREDNISolone SOD SUCCI 125 MG/2 ML VIAL IV SCH ×3 (00:44→14:27)
[2022-02-13] MEDS: carvediloL 12.5 MG TAB PO SCH ×2 (06:34→14:27)
[2022-02-13] MEDS: GABAPENTIN 300 MG CAP PO SCH ×4 (09:03→21:03)
[2022-02-13] MEDS: FUROSEMIDE 10 MG/ML 4 ML VIAL IV SCH ×2 (09:03→21:03)
[2022-02-13] MEDS: LEVOFLOXACIN 500 MG TAB PO SCH (09:03)
[2022-02-13] MEDS: HYDROcodone/APAP 10-325MG 1 EACH TAB PO SCH ×3 (09:04→21:03)
[2022-02-13] MEDS: ENOXAPARIN 40 MG/0.4 ML SYRINGE SQ SCH (09:04)
[2022-02-13] MEDS: TAMSULOSIN 0.4 MG CAP.ER.24H PO SCH (09:04)
[2022-02-13] MEDS: lisinopriL 10 MG TAB PO SCH (09:04)
[2022-02-13] MEDS: SYMBICORT 160-4.5 MCG INHALER INHALATION SCH ×2 (09:16→19:39)
[2022-02-13] MEDS: ALBUTEROL HFA INHALER INHALATION SCH ×4 (09:17→19:39)
[2022-02-13] MEDS: TIOTROPIUM 2.5 MCG INHALER INHALATION SCH (09:17)
[2022-02-13 09:28] LABS: Basophils % (A) 0 %; Eosinophils % (A) 0 %; HCT 34.6 % (39.0-53.0); Lymphocytes # (A) 0.3 k/uL (1.0-4.8); Lymphocytes % (A) 2 %; MCH 30.1 pg (25.0-35.0); MCHC 31.7 g/dL (31.0-37.0); Mean Platelet Volume 7.8; Monocytes # (A) 0.3 k/uL (0-1.0); Monocytes % (A) 2 %; Neutrophils % (A) 96 %; Platelet Count 220 k/uL (150-450); RBC 3.64 m/uL (4.30-5.90); RDW 13.7 % (11.5-15.5); WBC 14.6 k/uL (3.8-10.6)
[2022-02-13 10:27] LABS: African American GFR (CKD) >90 (>60 ml/min/1.73 sqM); Anion Gap 10 mmol/L; Blood Urea Nitrogen 45 mg/dL (9-20); Calcium 7.5 mg/dL (8.4-10.2); Carbon Dioxide 32 mmol/L (22-30); Chloride 89 mmol/L (98-107); Glucose 126 mg/dL (74-99); Non-African American GFR(CKD) 81 (>60 ml/min/1.73 sqM); Potassium 3.9 mmol/L (3.5-5.1); Sodium 131 mmol/L (137-145)
--- NOTE | 2022-02-13 11:48 | P.PN ---
Subjective Progress Note Date: 02/13/22 Principal diagnosis: sob Patient feels that his breathing is improving. He still however having trouble with shortness of breath. Still requiring 5 L of nasal cannula. He denied chest pain or fevers. No nausea or vomiting. No overnight events. Objective - Vital Signs Vital signs: Vital Signs Temp 97.5 F L 02/13/22 01:05 Pulse 75 02/13/22 08:00 Resp 18 02/13/22 08:00 BP 135/76 02/13/22 08:00 Pulse Ox 90 L 02/13/22 09:18 FiO2 Intake & Output 02/12/22 02/13/22 02/13/22 18:59 06:59 18:59 Intake Total 240 Output Total 700 Balance -460 Intake: Oral 240 Output: Urine 700 Other: # Voids 2 - Exam Constitutional: No acute distress, conversant, pleasant Eyes:Anicteric sclerae, moist conjunctiva, no lid-lag, PERRLA, ENMT: Oropharynx clear, no erythema, exudates Neck: Supple, FROM, no masses, or JVD, No carotid bruits, No thyromegaly Lungs: Bilateral rhonchi and scattered wheezes, Clear to percussion, Normal respiratory effort, no accessory muscle use Cardiovascular: Heart regular in rate and rhythm, No murmurs, gallops, or rubs, No peripheral edema Abdominal: Soft, Nontender, no guarding, rebound or rigidity, Normoactive bowel sounds, No hepatomegaly, No splenomegaly, No palpable mass Skin: Normal temperature, tone, texture, turgor, no induration, No subcutaneous nodules, No rash, lesions, No ulcers Extremities: No digital cyanosis, No clubbing, Pedal pulses intact and symmet rical, Radial pulses intact and symmetrical, No calf tenderness Psychiatric: Alert and oriented to person, place and time, appropriate affect, intact judgement Neuro: Muscles Strength 5/5 in all 4 extremities, Sensation to light touch grossly present throughout, Cranial nerves II-XII grossly intact, no focal sensory deficits - Labs CBC & Chem 7: 02/13/22 08:59 02/13/22 08:59 Labs: Abnormal Lab Results - Last 24 Hours (Table) 02/12/22 02/13/22 02/13/22 Range/Units 14:31 08:59 08:59 WBC 14.6 H (3.8-10.6) k/uL RBC 3.64 L (4.30-5.90) m/uL Hgb 11.0 L (13.0-17.5) gm/dL Hct 34.6 L (39.0-53.0) % Neutrophils # 14.0 H (1.3-7.7) k/uL Lymphocytes # 0.3 L (1.0-4.8) k/uL Sodium 131 L (137-145) mmol/L Chloride 89 L (98-107) mmol/L Carbon Dioxide 32 H (22-30) mmol/L BUN 45 H (9-20) mg/dL Glucose 126 H (74-99) mg/dL Calcium 7.5 L (8.4-10.2) mg/dL Troponin I 0.848 H* (0.000-0.034) ng/mL Microbiology - Last 24 Hours (Table) 02/11/22 17:10 Blood Culture - Preliminary Blood No Growth after 24 hours 02/11/22 17:15 Blood Culture - Preliminary Blood No Growth after 24 hours Assessment and Plan Plan: Acute on chronic hypoxemic respiratory failure Acute COPD exacerbation COVID-19 pneumonia Procalcitonin elevated levaquin added 02/12 Blood cultures NGTD Oxygen to keep saturations above 92% Pulmonary following Steroids and bronchodilators Acute diastolic CHF exacerbation with elevated BNP Echocardiogram showing normal EF with right sided elevated pressures likely due to copd Lasix 40 mg IV bid Elevated troponin likely demand ischemia Echo as above Consult cardiology Hypomagnesemia Replaced Essential hypertension Anxiety Stable Resume meds DVT prophylaxis Lovenox subcu
--- NOTE | 2022-02-13 13:24 | P.PN ---
Subjective Progress Note Date: 02/13/22 This is a 76-year-old male patient was a poor historian was brought into the emergency room yesterday with confusion, shortness of breath and positive for COVID-19. He has not vaccinated. His is also positive and hospitalized here. He has a history of oxygen dependent COPD and, hypertension, BPH, anxiety. Chest x-ray reveals mild cardiomegaly, diffuse interstitial changes, patchy bilateral opacities and trace effusions. Echocardiogram revealed normal ejection fraction 55-60%. White count 9.8. Hemoglobin 11.7. Sodium 133. Potassium 4.0. Bicarb 29. BUN 26. Creatinine 0.90. Troponin 1.67. Pro- calcitonin 35.7. Ornelas virus by PCR positive. Arterial blood gases were drawn on 40% FiO2 with a P O2 of 70, pCO2 53, pH 7.34. He is seen in consultation on the selective care unit. He is currently sitting up in bed. Awake and alert. Confused at times. Difficult to obtain accurate information from him. He is currently maintaining O2 saturations in the low 90s on 5 L high flow nasal cannula. He is afebrile. Hemodynamically stable. The patient is seen today 02/13/2022 in follow-up on the selective care unit. He is currently sitting up in bed. Awake and alert in no acute distress. Feeling better today compared to yesterday. Maintaining O2 saturations in the 90s on 5 L/m per nasal cannula. He's been afebrile. Hemodynamically stable. Blood cultures reveal no growth. white count 14.6. Hemoglobin 11.0. Sodium 131. Potassium 3.9. Bicarb 32. BUN 45. Creatinine 0.93. Glucose 126. Follow-up troponin 0.848. He is continued on Symbicort, Spiriva,albuterol, IV Solu-Medrol, IV diuretics. Antibiotics in the form of Levaquin. Lovenox for DVT prophylaxis. Objective - Vital Signs Vital signs: Vital Signs Temp 97.5 F L 02/13/22 01:05 Pulse 75 02/13/22 08:00 Resp 18 02/13/22 08:00 BP 135/76 02/13/22 08:00 Pulse Ox 90 L 02/13/22 09:18 FiO2 Intake & Output 02/12/22 02/13/22 02/13/22 18:59 06:59 18:59 Intake Total 240 Output Total 700 Balance -460 Intake: Oral 240 Output: Urine 700 Other: # Voids 2 - Exam GENERAL EXAM: Alert, confused, 76-year-old male patient, 5 liters nasal cannula, fairly comfortable in no apparent distress. HEAD: Normocephalic. EYES: Normal reaction of pupils, equal size. NOSE: Clear with pink turbinates. THROAT: No erythema or exudates. NECK: No masses, no JVD. CHEST: No chest wall deformity. LUNGS: Equal air entry with crackles in the bilateral bases. CVS: S1 and S2 normal with no audible murmur, regular rhythm. ABDOMEN: No hepatosplenomegaly, normal bowel sounds, no guarding or rigidity. SPINE: No scoliosis or deformity SKIN: No rashes CENTRAL NERVOUS SYSTEM: No focal deficits, tone is normal in all 4 extremities. EXTREMITIES: There is no peripheral edema. No clubbing, no cyanosis. Peripheral pulses are intact. - Labs CBC & Chem 7: 02/13/22 08:59 02/13/22 08:59 Labs: Abnormal Lab Results - Last 24 Hours (Table) 02/12/22 02/13/22 02/13/22 Range/Units 14:31 08:59 08:59 WBC 14.6 H (3.8-10.6) k/uL RBC 3.64 L (4.30-5.90) m/uL Hgb 11.0 L (13.0-17.5) gm/dL Hct 34.6 L (39.0-53.0) % Neutrophils # 14.0 H (1.3-7.7) k/uL Lymphocytes # 0.3 L (1.0-4.8) k/uL Sodium 131 L (137-145) mmol/L Chloride 89 L (98-107) mmol/L Carbon Dioxide 32 H (22-30) mmol/L BUN 45 H (9-20) mg/dL Glucose 126 H (74-99) mg/dL Calcium 7.5 L (8.4-10.2) mg/dL Troponin I 0.848 H* (0.000-0.034) ng/mL Microbiology - Last 24 Hours (Table) 02/11/22 17:10 Blood Culture - Preliminary Blood No Growth after 24 hours 02/11/22 17:15 Blood Culture - Preliminary Blood No Growth after 24 hours Assessment and Plan Assessment: Generalized weakness and confusion secondary to COVID-19 infection, cannot rule out underlying bacterial infection with pro-calcitonin 35.7 Acute on chronic hypoxemic respiratory failure secondary to COVID-19 pneumonia/diastolic congestive heart failure Elevated troponin. Limited echocardiogram revealed preserved left ventricular systolic function Advanced oxygen-dependent chronic obstructive pulmonary disease Hypertension History of anxiety BPH Plan: The patient was seen and evaluated Labs and medications reviewed Continue Symbicort, Spiriva, albuterol, IV Solu-Medrol Continue Lasix 40 mg IV every 12 hours Continue Levaquin 500 mg daily Lovenox for DVT prophylaxis Follow-up chest x-ray in the a.m. Titrate the FiO2 as tolerated We will continue to follow I have personally seen and examined the patient, performed the documentation and the assessment and plan as written. Number of minutes spent on the visit: 10.
--- NOTE | 2022-02-13 15:51 | P.CRDCN ---
History of Present Illness History of present illness: HISTORY OF PRESENTING ILLNESS Patient is a pleasant 76-year-old male with history of previous tobacco abuse, COPD, hypertension, on home oxygen, BPH, previous LA per patient. Patient somewhat confused and unable to tell the history. He does believe she had a prior heart attack however does not recall any heart catheterization or stenting and states this was 20 years ago or so. He states he came in because of increased shortness breath or last few days. His also contracted Covid and has been hospitalized as well. He admits to mild cough and has been more short of breath however also believes it was somewhat related to his COPD. Patient was tachycardic and to And placed on nonrebreather on presentation however no documentation of what his oxygen saturation was. White blood cell count 12.5, hemoglobin 11.9, d-dimer 0.4, sodium 1:30, creatinine 1.0, proBNP 7600, coronav irus positive, troponin 1.6, 0.8, pro-calcitonin 35. EKG shows sinus tachycardia with PACs and left axis deviation and nonspecific ST depressions in the lateral leads. X-ray shows mild cardiomegaly and diffuse interstitial changes with possible pulmonary and infiltrate versus pulmonary edema. Limited 2-D echo shows EF 55-60% with mild to moderately dilated right ventricle. REVIEW OF SYSTEMS At the time of my exam: CONSTITUTIONAL: +fever +chills. CARDIOVASCULAR: +chest pain, +shortness of breath, no orthopnea, PND or palpitations. RESPIRATORY: Denies cough. GASTROINTESTINAL: Denies abdominal pain, diarrhea, constipation, nausea or vomiting. MUSCULOSKELETAL: Denies myalgias. NEUROLOGIC: Denies numbness, tingling or weakness. ENDOCRINE: Denies fatigue, weight change, polydipsia or polyurina. GENITOURINARY: Denies burning, hematuria or urgency with micturation. HEMATOLOGIC: Denies history of anemia or bleeding. PHYSICAL EXAMINATION Vital signs reviewed. CONSTITUTIONAL: No apparent distress, chronically ill appearing, on oxygen, poor historian HEENT: Head is normocephalic. Pupils are equal, round. Sclerae anicteric. Mucous membranes of the mouth are moist. No JVD. No carotid bruit. CHEST EXAMINATION: Lungs are clear to auscultation. No chest wall tenderness is noted on palpation or with deep breathing. HEART EXAMINATION: Regular rate and rhythm. S1, S2 heard. No murmurs, gallops or rub. ABDOMEN: Soft, nontender. Positive bowel sounds. EXTREMITIES: 2+ peripheral pulses, no lower extremity edema and no calf tenderness. NEUROLOGIC EXAMINATION: Patient is awake, confused ASSESSMENT 1. Non-STEMI likely related to COVID-19, hypoxia, sepsis 2. Reported history of LA however no history of stenting. Patient poor historian 3. Acute on chronic respiratory failure 4. Acute COVID-19 pneumonia 5. Altered mental status 6. Previous tobacco abuse 7. Atypical chest pain, patient unable to give clear history regarding chest pain 8. Abnormal EKG 9. Mildly dilated right ventricle likely related to underlying COPD, d-dimer normal 10. Acute on chronic diastolic heart failure PLAN ProBNP elevated and x-ray reviewed with bilateral diffuse interstitial infiltrates, cannot exclude possible vascular congestion as well. Continue diuretics for now and monitor response. Non-STEMI likely type II mechanism however additionally having chest pain. Patient poor historian and continue to monitor. Add aspirin and continue Coreg. If has recurrent chest pain we will continue to trend troponins. Prognosis guarded. Past Medical History Past Medical History: Unable to Obtain, COPD History of Any Multi-Drug Resistant Organisms: None Reported Past Surgical History: No Surgical Hx Reported Past Anesthesia/Blood Transfusion Reactions: No Reported Reaction Past Psychological History: Unable to Obtain Smoking Status: Former smoker Past Alcohol Use History: None Reported Past Drug Use History: None Reported Medications and Allergies Home Medications Medication Instructions Recorded Confirmed Type ALPRAZolam [Xanax] 2 mg PO BID 02/11/22 02/11/22 History Gabapentin [Neurontin] 300 mg PO QID 02/11/22 02/11/22 History HYDROcodone/APAP 10-325MG [[place] 1 tab PO TID 02/11/22 02/11/22 History 10-325] Ipratropium-Albuterol Nebulize 3 ml INHALATION RT-Q6H PRN 02/11/22 02/11/22 History [Duoneb 0.5 mg-3 mg/3 ml Soln] Tamsulosin HCl [Flomax] 0.4 mg PO DAILY 02/11/22 02/11/22 History carvediloL [Coreg] 25 mg PO BID 02/11/22 02/11/22 History lisinopriL [Prinivil] 10 mg PO DAILY 02/11/22 02/11/22 History predniSONE [Deltasone] 20 mg PO DAILY 02/11/22 02/11/22 History Allergies Allergy/AdvReac Type Severity Reaction Status Date / Time Unable to Assess Allergy Verified 02/11/22 09:43 Physical Exam Vitals: Vital Signs Temp Pulse Resp BP Pulse Ox 02/13/22 14:00 98.1 F 18 141/71 91 L 02/13/22 09:18 90 L 02/13/22 08:00 75 18 135/76 91 L 02/13/22 06:42 77 141/66 02/13/22 01:05 97.5 F L 65 18 117/56 90 L 02/12/22 20:40 98.2 F 65 20 102/54 91 L Intake and Output 02/13/22 02/13/22 02/13/22 06:59 14:59 22:59 Intake Total 240 Output Total 600 Balance -360 Intake: Oral 240 Output: Urine 600 Results 02/13/22 08:59 02/13/22 08:59 CBC 02/13/22 Range/Units 08:59 WBC 14.6 H (3.8-10.6) k/uL RBC 3.64 L (4.30-5.90) m/uL Hgb 11.0 L (13.0-17.5) gm/dL Hct 34.6 L (39.0-53.0) % Plt Count 220 (150-450) k/uL Comprehensive Metabolic Panel 02/13/22 Range/Units 08:59 Sodium 131 L (137-145) mmol/L Potassium 3.9 (3.5-5.1) mmol/L Chloride 89 L (98-107) mmol/L Carbon Dioxide 32 H (22-30) mmol/L BUN 45 H (9-20) mg/dL Creatinine 0.93 (0.66-1.25) mg/dL Glucose 126 H (74-99) mg/dL Calcium 7.5 L (8.4-10.2) mg/dL Current Medications Generic Name Dose Route Start Last Admin Trade Name Freq PRN Reason Stop Dose Admin Acetaminophen 650 mg 02/11/22 11:52 Acetaminophen Tab 325 Mg Tab PO Q6HR PRN Mild Pain or Fever > 100.5 Hydrocodone Bitart/Acetaminophen 1 each 02/11/22 16:00 02/13/22 14:27 Hydrocodone/Apap 10-325mg 1 Each Tab PO 1 each TID OKSANA Administration Albuterol Sulfate 2 puff 02/13/22 08:00 02/13/22 12:25 Albuterol Hfa Inhaler INHALATION 2 puff RT-QID OKSANA Administration Budesonide/Formoterol Fumarate 2 puff 02/12/22 20:00 02/13/22 09:16 Symbicort 160-4.5 Mcg Inhaler INHALATION Not Given RT-BID OKSANA Carvedilol 25 mg 02/11/22 17:30 02/13/22 14:27 Carvedilol 12.5 Mg Tab PO 25 mg BID-W/MEALS OKSANA Administration Enoxaparin Sodium 40 mg 02/11/22 16:15 02/13/22 09:04 Enoxaparin 40 Mg/0.4 Ml Syringe SQ 40 mg DAILY OKSANA Administration Furosemide 40 mg 02/12/22 09:00 02/13/22 09:03 Furosemide 10 Mg/Ml 4 Ml Vial IV 40 mg Q12HR OKSANA Administration Gabapentin 300 mg 02/11/22 18:00 02/13/22 14:26 Gabapentin 300 Mg Cap PO 300 mg QID OKSANA Administration Levofloxacin 500 mg 02/12/22 12:00 02/13/22 09:03 Levofloxacin 500 Mg Tab PO 500 mg Q24H OKSANA Administration Protocol Lisinopril 10 mg 02/12/22 09:00 02/13/22 09:04 Lisinopril 10 Mg Tab PO 10 mg DAILY OKSANA Administration Methylprednisolone Sodium Succinate 60 mg 02/11/22 16:00 02/13/22 14:27 Methylprednisolone Sod Succi 125 Mg/2 Ml Vial IV 60 mg Q8HR OKSANA Administration Naloxone HCl 0.2 mg 02/11/22 15:49 Naloxone 0.4 Mg/Ml 1 Ml Vial IV Q2M PRN Opioid Reversal Tamsulosin HCl 0.4 mg 02/12/22 09:00 02/13/22 09:04 Tamsulosin 0.4 Mg Cap.Er.24h PO 0.4 mg DAILY OKSANA Administration Tiotropium [place] 2 puff 02/11/22 19:15 02/13/22 09:17 Tiotropium 2.5 Mcg Inhaler INHALATION 2 puff RT-DAILY OKSANA Administration Intake and Output 02/13/22 02/13/22 02/13/22 06:59 14:59 22:59 Intake Total 240 Output Total 600 Balance -360 Intake: Oral 240 Output: Urine 600 02/13/22 08:59 02/13/22 08:59
[2022-02-13] MEDS: ASPIRIN 81 MG PO SCH (17:29)
[2022-02-14] MEDS: methylPREDNISolone SOD SUCCI 125 MG/2 ML VIAL IV SCH ×3 (00:25→17:17)
[2022-02-14 01:16] LABS: Appearance,Urine Clear (Clear); Bilirubin,Urine Negative (Negative); Blood,Urine Negative (Negative); Color,Urine Light Yellow; Glucose,Urine (UA) Negative (Negative); Ketones,Urine Negative (Negative); Leukocyte Esterase,Urine Negative (Negative); Nitrite,Urine Negative (Negative); PH, Urine 5.5 (5.0-8.0); Protein,Urine Negative (Negative); Specific Gravity,Urine 1.008 (1.001-1.035); Urobilinogen,Urine <2.0 mg/dL (<2.0)
[2022-02-14] MEDS: carvediloL 12.5 MG TAB PO SCH ×2 (06:50→17:17)
--- NOTE | 2022-02-14 07:10 | XR ---
EXAMINATION TYPE: XR chest 1V DATE OF EXAM: 02/14/2022 6:49 AM COMPARISON: Chest radiographs from 02/11/2022. TECHNIQUE: XR chest 1V Frontal view of the chest. CLINICAL INDICATION:Male, 76 years old with history of Covid, chf; FINDINGS: Lungs/Pleura: No pneumothorax or pleural effusion. Interval improvement in diffuse patchy airspace an d interstitial opacities. Pulmonary vascularity: Unremarkable. Heart/mediastinum: Cardiomediastinal silhouette is enlarged and stable. Atherosclerotic calcificatio ns are seen in the aorta. Musculoskeletal: No acute osseous pathology. IMPRESSION: Interval improvement in diffuse patchy bilateral interstitial and airspace opacities.
[2022-02-14] MEDS: ENOXAPARIN 40 MG/0.4 ML SYRINGE SQ SCH (08:31)
[2022-02-14] MEDS: TAMSULOSIN 0.4 MG CAP.ER.24H PO SCH (08:32)
[2022-02-14] MEDS: ASPIRIN 81 MG PO SCH (08:32)
[2022-02-14] MEDS: lisinopriL 10 MG TAB PO SCH (08:32)
[2022-02-14] MEDS: GABAPENTIN 300 MG CAP PO SCH ×4 (08:32→20:35)
[2022-02-14] MEDS: HYDROcodone/APAP 10-325MG 1 EACH TAB PO SCH ×3 (08:32→20:35)
[2022-02-14] MEDS: FUROSEMIDE 10 MG/ML 4 ML VIAL IV SCH ×2 (08:32→20:35)
[2022-02-14] MEDS: TIOTROPIUM 2.5 MCG INHALER INHALATION SCH (08:52)
[2022-02-14] MEDS: ALBUTEROL HFA INHALER INHALATION SCH ×5 (08:53→20:18)
[2022-02-14] MEDS: SYMBICORT 160-4.5 MCG INHALER INHALATION SCH ×3 (08:54→20:18)
--- NOTE | 2022-02-14 10:02 | P.PN ---
Subjective Patient is a pleasant 76-year-old male with history of previous tobacco abuse, COPD, hypertension, on home oxygen, BPH, previous [place] per patient. 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 Patient somewhat confused and unable to tell the history. He does believe she had a prior heart attack however does not recall any heart catheterization or stenting and states this was 20 years ago or so. He states he came in because of increased shortness breath or last few days. His also contracted Covid and has been hospitalized as well. He admits to mild cough and has been more short of breath however also believes it was somewhat related to his COPD. EKG showed sinus tachycardia with PACs and left axis deviation and nonspecific ST depressions in the lateral leads. X-ray shows mild cardiomegaly and diffuse interstitial changes with possible pulmonary and infiltrate versus pulmonary edema. Limited 2-D echo shows EF 55-60% with mild to moderately dilated right ventricle. 02/14/2022 Patient seen at bedside, no acute distress. Continues to be short of breath, hypoxic at 89% on 5 L nasal cannula. Blood pressure 160/87, heart rate 68. He denies any chest pain. His currently maintained on IV Lasix 40 mg twice a day, carvedilol 25 mg twice a day, aspirin 81 mg daily, lisinopril 10 mg daily. Patient with negative fluid balance. 2 L urine output past 24 hours. PHYSICAL EXAMINATION Vital signs reviewed. CONSTITUTIONAL: No apparent distress, chronically ill appearing, on oxygen, poor historian HEENT: Head is normocephalic. Neck Supple. No JVD. CHEST EXAMINATION: Lungs are diminsiehd HEART EXAMINATION: Regular rate and rhythm. S1, S2 heard. ABDOMEN: Soft, nontender. EXTREMITIES: 2+ peripheral pulses, 1+ lower extremity edema and no calf tenderness. NEUROLOGIC EXAMINATION: Patient is awake, confused ASSESSMENT Acute on chronic heart failure with preserved ejection fraction Non-STEMI likely type II NJ secondary to COVID-19, hypoxia, sepsis Reported history of [place] however no history of stenting. Patient poor historian Acute on chronic respiratory failure Acute COVID-19 pneumonia Altered mental status Previous tobacco abuse Abnormal EKG Mildly dilated right ventricle likely related to underlying COPD, d-dimer normal PLAN Continue IV Lasix for additional 24 hours Monitor I/os, daily weights, renal function and electrolytes Continue home cardiac medication Further recommendations based on clinical course Nurse practitioner note has been reviewed by physician. Signing provider agrees with the documented findings, assessment, and plan of care. Objective - Vital Signs Vital signs: Vital Signs Temp 98.1 F 02/14/22 08:49 Pulse 68 02/14/22 08:49 Resp 16 02/14/22 08:49 BP 160/87 02/14/22 08:49 Pulse Ox 89 L 02/14/22 08:49 FiO2 Intake & Output 02/13/22 02/14/22 02/14/22 18:59 06:59 18:59 Intake Total 1620 Output Total 1999 250 Balance -380 -250 Intake: Oral 1620 Output: Urine 1999 250 Other: Voiding Method Bedside Commode Bedside Commode # Voids 1 1 - Labs CBC & Chem 7: 02/13/22 08:59 02/13/22 08:59 Labs: Abnormal Lab Results - Last 24 Hours (Table) 02/13/22 Range/Units 08:59 Sodium 131 L (137-145) mmol/L Chloride 89 L (98-107) mmol/L Carbon Dioxide 32 H (22-30) mmol/L BUN 45 H (9-20) mg/dL Glucose 126 H (74-99) mg/dL Calcium 7.5 L (8.4-10.2) mg/dL Microbiology - Last 24 Hours (Table) 02/11/22 17:15 Blood Culture - Preliminary Blood No Growth after 48 hours 02/11/22 17:10 Blood Culture - Preliminary Blood No Growth after 48 hours
[2022-02-14] MEDS: LEVOFLOXACIN 500 MG TAB PO SCH (12:49)
--- NOTE | 2022-02-14 14:03 | P.PN ---
Subjective Progress Note Date: 02/14/22 Principal diagnosis: SOB Hospital Course: 76-year-old male with history of COPD on 2 L, hypertension, BPH presenting with dyspnea, confusion secondary to COVID pneumonia and bacterial pneumonia. Patient also being treated with COPD exacerbation in the setting of acute infection, and acute diastolic CHF exacerbation. Pulmonology and cardiology following patient. Subjective: Patient seen and examined at bedside. No acute events overnight. He claims that his shortness of breath is slightly worse compared to before. He is currently on 6 L of oxygen per nasal cannula. He denies any chest pain, abdominal pain, nausea, vomiting, urinary or bowel issues. Pertinent positives and negatives as discussed above, a complete review of systems was performed and all other systems are negative. Vitals Signs Reviewed. General: nontoxic, no distress, appears at stated age Derm: warm, dry Head: atraumatic, normocephalic, symmetric Eyes: EOMI, no lid lag, anicteric sclera Mouth: no lip lesion, mucus membranes moist Cardiovascular: S1S2 reg, no murmur Lungs: Minimal rales bilaterally at the bases , no accessory muscle use, 6 L oxygen nasal cannula Abdominal: soft, nontender to palpation, no guarding, no appreciable organomegaly Ext: no gross muscle atrophy, trace peripheral edema, no contractures Neuro: CN II-XI grossly intact, no focal neuro deficits Psych: Alert, oriented, appropriate affect Assessment and Plan: Acute on chronic hypoxic respiratory failure Acute COPD exacerbation COVID-19 pneumonia Possible Bacterial pneumonia -Continue supplemental oxygen -Elevated pro-calcitonin, patient on levofloxacin -Continue bronchodilators and steroids -Chest x-ray improving compared to admission Acute diastolic CHF exacerbation -Normal EF 55-60%, mild to moderately dilated right ventricle -Cardiology consulted -Continue IV Lasix for another 24 hours per cardiology -I's and O's, monitor urine Elevated troponin likely demand ischemia -Denies chest pain Essential hypertension -Continue home medications F: Oral E: Replete as needed N: Heart healthy A: As tolerated DVT ppx: Lovenox Code status: Full code Anticipated discharge place: Home Anticipated discharge time: 1-2 days Objective - Vital Signs Vital signs: Vital Signs Temp 98.1 F 02/14/22 08:49 Pulse 68 02/14/22 08:49 Resp 16 02/14/22 08:49 BP 160/87 09/12/22 08:49 Pulse Ox 89 L 02/14/22 08:49 FiO2 Intake & Output 02/13/22 02/14/22 02/14/22 18:59 06:59 18:59 Intake Total 1620 Output Total 1999 250 Balance -380 -250 Intake: Oral 1620 Output: Urine 1999 250 Other: Voiding Method Bedside Commode Bedside Commode # Voids 1 1 - Labs CBC & Chem 7: 02/13/22 08:59 02/13/22 08:59 Labs: Microbiology - Last 24 Hours (Table) 02/11/22 17:15 Blood Culture - Preliminary Blood No Growth after 48 hours 02/11/22 17:10 Blood Culture - Preliminary Blood No Growth after 48 hours
--- NOTE | 2022-02-14 15:07 | P.PN ---
Subjective Progress Note Date: 02/14/22 This is a 76-year-old male patient was a poor historian was brought into the emergency room yesterday with confusion, shortness of breath and positive for COVID-19. He has not vaccinated. His is also positive and hospitalized here. He has a history of oxygen dependent COPD and, hypertension, BPH, anxiety. Chest x-ray reveals mild cardiomegaly, diffuse interstitial changes, patchy bilateral opacities and trace effusions. Echocardiogram revealed normal ejection fraction 55-60%. White count 9.8. Hemoglobin 11.7. Sodium 133. Potassium 4.0. Bicarb 29. BUN 26. Creatinine 0.90. Troponin 1.67. Pro- calcitonin 35.7. Ornelas virus by PCR positive. Arterial blood gases were drawn on 40% FiO2 with a P O2 of 70, pCO2 53, pH 7.34. He is seen in consultation on the selective care unit. He is currently sitting up in bed. Awake and alert. Confused at times. Difficult to obtain accurate information from him. He is currently maintaining O2 saturations in the low 90s on 5 L high flow nasal cannula. He is afebrile. Hemodynamically stable. The patient is seen today 02/13/2022 in follow-up on the selective care unit. He is currently sitting up in bed. Awake and alert in no acute distress. Feeling better today compared to yesterday. Maintaining O2 saturations in the 90s on 5 L/m per nasal cannula. He's been afebrile. Hemodynamically stable. Blood cultures reveal no growth. white count 14.6. Hemoglobin 11.0. Sodium 131. Potassium 3.9. Bicarb 32. BUN 45. Creatinine 0.93. Glucose 126. Follow-up troponin 0.848. He is continued on Symbicort, Spiriva,albuterol, IV Solu-Medrol, IV diuretics. Antibiotics in the form of Levaquin. Lovenox for DVT prophylaxis. The patient is seen today 02/14/2022 in follow-up on the selective care unit. He is currently sitting up in a chair at the bedside. Awake and alert in no acute distress. He is maintaining O2 saturations in the low 90s on 6 L high flow nasal cannula. Chest x-ray showing some interval improvement in the diffuse patchy bilateral interstitial and airspace opacities. blood cultures reveal no growth to date. Urinalysis clean. He is continued on Symbicort, Spiriva, albuterol, IV Solu-Medrol. Remains on Lovenox for DVT prophylaxis. Continued on Levaquin. He remains on IV Lasix 40 mg every 12 hours. Remains in a negative balance. Objective - Vital Signs Vital signs: Vital Signs Temp 98.1 F 02/14/22 08:49 Pulse 70 02/14/22 12:53 Resp 16 02/14/22 08:49 BP 143/67 02/14/22 12:53 Pulse Ox 90 L 02/14/22 12:53 FiO2 Intake & Output 02/13/22 02/14/22 02/14/22 18:59 06:59 18:59 Intake Total 1620 118 Output Total 1999 480 Balance -380 -362 Intake: Oral 1620 118 Output: Urine 1999 Other: Voiding Method Bedside Commode Bedside Commode # Voids 1 1 - Exam GENERAL EXAM: Alert, confused, 76-year-old male patient, 6 liters nasal cannula, fairly comfortable in no apparent distress. HEAD: Normocephalic. EYES: Normal reaction of pupils, equal size. NOSE: Clear with pink turbinates. THROAT: No erythema or exudates. NECK: No masses, no JVD. CHEST: No chest wall deformity. LUNGS: Equal air entry with crackles in the bilateral bases. CVS: S1 and S2 normal with no audible murmur, regular rhythm. ABDOMEN: No hepatosplenomegaly, normal bowel sounds, no guarding or rigidity. SPINE: No scoliosis or deformity SKIN: No rashes CENTRAL NERVOUS SYSTEM: No focal deficits, tone is normal in all 4 extremities. EXTREMITIES: There is no peripheral edema. No clubbing, no cyanosis. Peripheral pulses are intact. - Labs CBC & Chem 7: 02/13/22 08:59 02/13/22 08:59 Labs: Microbiology - Last 24 Hours (Table) 02/11/22 17:15 Blood Culture - Preliminary Blood No Growth after 48 hours 02/11/22 17:10 Blood Culture - Preliminary Blood No Growth after 48 hours Assessment and Plan Assessment: Generalized weakness and confusion secondary to COVID-19 infection, not vaccinated, cannot rule out underlying bacterial infection with pro-calcitonin 35.7. Currently on Levaquin Acute on chronic hypoxemic respiratory failure secondary to COVID-19 pneumonia/diastolic congestive heart failure. Remains on IV diuretics Elevated troponin. Limited echocardiogram revealed preserved left ventricular systolic function Advanced oxygen-dependent chronic obstructive pulmonary disease Hypertension History of anxiety BPH Plan: The patient was seen and evaluated Chest x-ray showing improvement, on 6 L nasal cannula Continue Symbicort, Spiriva, albuterol, IV Solu-Medrol Continue Lasix 40 mg IV every 12 hours Continue Levaquin 500 mg daily Lovenox for DVT prophylaxis Titrate the FiO2 as tolerated We will continue to follow I have personally seen and examined the patient, performed the documentation and the assessment and plan as written. Number of minutes spent on the visit: 10.
[2022-02-15] MEDS: methylPREDNISolone SOD SUCCI 125 MG/2 ML VIAL IV SCH ×2 (01:29→07:57)
[2022-02-15] MEDS: carvediloL 12.5 MG TAB PO SCH ×2 (06:42→15:58)
[2022-02-15] MEDS: lisinopriL 10 MG TAB PO SCH (07:56)
[2022-02-15] MEDS: ENOXAPARIN 40 MG/0.4 ML SYRINGE SQ SCH (07:56)
[2022-02-15] MEDS: TAMSULOSIN 0.4 MG CAP.ER.24H PO SCH (07:56)
[2022-02-15] MEDS: ASPIRIN 81 MG PO SCH (07:57)
[2022-02-15] MEDS: FUROSEMIDE 10 MG/ML 4 ML VIAL IV SCH ×4 (07:57→22:40)
[2022-02-15] MEDS: TIOTROPIUM 2.5 MCG INHALER INHALATION SCH (08:46)
[2022-02-15] MEDS: SYMBICORT 160-4.5 MCG INHALER INHALATION SCH ×2 (08:46→19:38)
[2022-02-15] MEDS: ALBUTEROL HFA INHALER INHALATION SCH ×4 (08:46→19:38)
[2022-02-15 09:07] LABS: African American GFR (CKD) >90 (>60 ml/min/1.73 sqM); Blood Urea Nitrogen 39 mg/dL (9-20); Calcium 7.7 mg/dL (8.4-10.2); Chloride 84 mmol/L (98-107); Glucose 123 mg/dL (74-99); Non-African American GFR(CKD) 87 (>60 ml/min/1.73 sqM); Potassium 3.2 mmol/L (3.5-5.1); Sodium 134 mmol/L (137-145)
[2022-02-15 09:17] LABS: Anion Gap 11 mmol/L
[2022-02-15 09:26] LABS: Carbon Dioxide 39 mmol/L (22-30)
--- NOTE | 2022-02-15 09:47 | XR ---
EXAMINATION TYPE: XR chest 1V portable DATE OF EXAM: 02/15/2022 COMPARISON: 02/14/2022 HISTORY: Shortness of breath TECHNIQUE: Single frontal view of the chest is obtained. FINDINGS: Diffuse interstitial lung infiltrates are stable. Underlying COPD and chronic interstitial lung disease suspected. Subsegmental infiltrate right lung base. Biapical pleural thickening. Athero sclerotic change aorta. No pneumothorax. IMPRESSION: Stable interstitial infiltrates with right basilar infiltrate.
[2022-02-15 10:02] LABS: VBG PH 7.42 (7.31-7.41)
[2022-02-15] MEDS: HYDROcodone/APAP 10-325MG 1 EACH TAB PO SCH ×3 (10:16→22:25)
[2022-02-15] MEDS: GABAPENTIN 300 MG CAP PO SCH ×4 (10:16→22:12)
--- NOTE | 2022-02-15 11:04 | P.PN ---
Subjective Patient is a pleasant 76-year-old male with history of previous tobacco abuse, COPD, hypertension, on home oxygen, BPH, previous [place] per patient. 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 Patient somewhat confused and unable to tell the history. He does believe she had a prior heart attack however does not recall any heart catheterization or stenting and states this was 20 years ago or so. He states he came in because of increased shortness breath or last few days. His also contracted Covid and has been hospitalized as well. He admits to mild cough and has been more short of breath however also believes it was somewhat related to his COPD. EKG showed sinus tachycardia with PACs and left axis deviation and nonspecific ST depressions in the lateral leads. X-ray shows mild cardiomegaly and diffuse interstitial changes with possible pulmonary and infiltrate versus pulmonary edema. Limited 2-D echo shows EF 55-60% with mild to moderately dilated right ventricle. 02/15/2022 Patient seen at bedside, appears more agitated this morning. Pulled out his IVs per RN. Continues to be short of breath, hypoxic at 89-90% on 5-6 L nasal cannula. Blood pressure 178/84, heart rate 85. He denies any chest pain. His currently maintained on IV Lasix 80 mg twice a day, carvedilol 25 mg twice a day, aspirin 81 mg daily, lisinopril 10 mg daily. Patient with negative fluid balance. 2.4 urine output past 24 hours. Weight decreased PHYSICAL EXAMINATION Vital signs reviewed. Full exam not performed secondary to covid-19 exposure CONSTITUTIONAL: No apparent distress, chronically ill appearing, on oxygen, poor historian HEART EXAMINATION: Regular rate and rhythm. EXTREMITIES: 1+ lower extremity edema and no calf tenderness. NEUROLOGIC EXAMINATION: Patient is awake, confused, agitated ASSESSMENT Acute on chronic heart failure with preserved ejection fraction Non-STEMI likely type II UT secondary to COVID-19, hypoxia, sepsis Reported history of [place] however no history of stenting. Patient poor historian Acute on chronic respiratory failure Acute COVID-19 pneumonia Altered mental status Previous tobacco abuse Abnormal EKG Mildly dilated right ventricle likely related to underlying COPD, d-dimer normal PLAN Decrease IV Lasix 40mg BID Continue home cardiac medications Monitor I/os, daily weights, renal function and electrolytes Continue home cardiac medication Further recommendations based on clinical course Nurse practitioner note has been reviewed by physician. Signing provider agrees with the documented findings, assessment, and plan of care. Objective - Vital Signs Vital signs: Vital Signs Temp 98.2 F 02/15/22 01:33 Pulse 85 02/15/22 08:15 Resp 21 02/15/22 08:15 BP 178/84 02/15/22 08:12 Pulse Ox 90 L 02/15/22 08:12 FiO2 Intake & Output 02/14/22 02/15/22 02/15/22 18:59 06:59 18:59 Intake Total 118 1080 Output Total 1280 1200 Balance -1162 -120 Weight 66.6 kg Intake: Oral 118 1080 Output: Urine 1280 1200 Other: Voiding Method Bedside Commode Bedside Commode Bedside Commode # Voids 1 - Labs CBC & Chem 7: 02/13/22 08:59 02/15/22 08:02 Labs: Abnormal Lab Results - Last 24 Hours (Table) 02/15/22 02/15/22 Range/Units 08:02 09:22 VBG pH 7.42 H (7.31-7.41) VBG pCO2 67 H (37-51) mmHg VBG HCO3 43 H (24-28) mmol/L Sodium 134 L (137-145) mmol/L Potassium 3.2 L (3.5-5.1) mmol/L Chloride 84 L (98-107) mmol/L Carbon Dioxide 39 H (22-30) mmol/L BUN 39 H (9-20) mg/dL Glucose 123 H (74-99) mg/dL Calcium 7.7 L (8.4-10.2) mg/dL Microbiology - Last 24 Hours (Table) 02/11/22 17:15 Blood Culture - Preliminary Blood No Growth after 72 hours 02/11/22 17:10 Blood Culture - Preliminary Blood No Growth after 72 hours
[2022-02-15] MEDS ORDERED: Potassium Replacement Protocol 1 EACH MISC MISCELLANE PRN (11:11)
[2022-02-15 12:04] LABS: Glucose,Whole Blood 127 mg/dL (70-110)
--- NOTE | 2022-02-15 12:26 | P.PN ---
Subjective Progress Note Date: 02/15/22 Principal diagnosis: SOB Hospital Course: 76-year-old male with history of COPD on 2 L, hypertension, BPH presenting with dyspnea, confusion secondary to COVID pneumonia and bacterial pneumonia. Patient also being treated with COPD exacerbation in the setting of acute infection, and acute diastolic CHF exacerbation. Pulmonology and cardiology following patient. Subjective: Patient seen and examined at bedside. No acute events overnight. However, he did become more hypoxic this morning, requiring hiflo nasal canula. Per nursing, he is also a little bit more confused. He denies any chest pain, abdominal pain, nausea, vomiting, urinary or bowel issues. Pertinent positives and negatives as discussed above, a complete review of systems was performed and all other systems are negative. Vitals Signs Reviewed. General: nontoxic, no distress, appears at stated age Derm: warm, dry Head: atraumatic, normocephalic, symmetric Eyes: EOMI, no lid lag, anicteric sclera Mouth: no lip lesion, mucus membranes moist Cardiovascular: S1S2 reg, no murmur Lungs: Minimal rales bilaterally at the bases , no accessory muscle use, 15 L HFNC Abdominal: soft, nontender to palpation, no guarding, no appreciable organomegaly Ext: no gross muscle atrophy, trace peripheral edema, no contractures Neuro: CN II-XI grossly intact, no focal neuro deficits Psych: Alert, oriented x1 (to person) Assessment and Plan: Acute on chronic hypoxic respiratory failure Acute COPD exacerbation COVID-19 pneumonia Possible Bacterial pneumonia -Continue supplemental oxygen -Elevated pro-calcitonin, patient on levofloxacin -Continue bronchodilators and steroids -increasing O2 requirements -switched steroids to dexamethasone -will talk to pulm if patient can be started on monoclonal therapy Acute diastolic CHF exacerbation -Normal EF 55-60%, mild to moderately dilated right ventricle -Cardiology consulted -Continue IV Lasix -I's and O's, monitor urine Acute encephalopathy -CO2 slightly elevated but normal pH, well compensated, so likely chronic elevation -likely in the setting of steroid use and hypoxia Elevated troponin likely demand ischemia -Denies chest pain Essential hypertension -Continue home medications F: Oral E: Replete as needed N: Heart healthy A: As tolerated DVT ppx: Lovenox Code status: Full code Anticipated discharge place: Home Anticipated discharge time: 2-3 days Objective - Vital Signs Vital signs: Vital Signs Temp 98.2 F 02/15/22 01:33 Pulse 85 02/15/22 08:15 Resp 21 02/15/22 08:15 BP 178/84 02/15/22 08:12 Pulse Ox 90 L 02/15/22 08:12 FiO2 Intake & Output 02/14/22 02/15/22 02/15/22 18:59 06:59 18:59 Intake Total 118 1080 Output Total 1280 1200 Balance -1162 -120 Weight 66.6 kg Intake: Oral 118 1080 Output: Urine 1280 1200 Other: Voiding Method Bedside Commode Bedside Commode Bedside Commode # Voids 1 - Labs CBC & Chem 7: 02/13/22 08:59 02/15/22 08:02 Labs: Abnormal Lab Results - Last 24 Hours (Table) 02/15/22 02/15/22 02/15/22 Range/Units 08:02 09: 12:02 VBG pH 7.42 H (7.31-7.41) VBG pCO2 67 H (37-51) mmHg VBG HCO3 43 H (24-28) mmol/L Sodium 134 L (137-145) mmol/L Potassium 3.2 L (3.5-5.1) mmol/L Chloride 84 L (98-107) mmol/L Carbon Dioxide 39 H (22-30) mmol/L BUN 39 H (9-20) mg/dL Glucose 123 H (74-99) mg/dL POC Glucose (mg/dL) 127 H (70-110) mg/dL Calcium 7.7 L (8.4-10.2) mg/dL Microbiology - Last 24 Hours (Table) 02/11/22 17:15 Blood Culture - Preliminary Blood No Growth after 72 hours 02/11/22 17:10 Blood Culture - Preliminary Blood No Growth after 72 hours
[2022-02-15] MEDS: POTASSIUM CHLORIDE ER 20 MEQ TAB.ER PO SCH ×3 (12:45→15:58)
[2022-02-15] MEDS: LEVOFLOXACIN 500 MG TAB PO SCH (12:46)
--- NOTE | 2022-02-15 13:38 | P.PN ---
Subjective Progress Note Date: 02/15/22 Principal diagnosis: COPD, coronavirus infection This is a 76-year-old male patient was a poor historian was brought into the emergency room yesterday with confusion, shortness of breath and positive for COVID-19. He has not vaccinated. His is also positive and hospitalized here. He has a history of oxygen dependent COPD and, hypertension, BPH, anxiety. Chest x-ray reveals mild cardiomegaly, diffuse interstitial changes, patchy bilateral opacities and trace effusions. Echocardiogram revealed normal ejection fraction 55-60%. White count 9.8. Hemoglobin 11.7. Sodium 133. Potassium 4.0. Bicarb 29. BUN 26. Creatinine 0.90. Troponin 1.67. Pro- calcitonin 35.7. Ornelas virus by PCR positive. Arterial blood gases were drawn on 40% FiO2 with a P O2 of 70, pCO2 53, pH 7.34. He is seen in consultation on the selective care unit. He is currently sitting up in bed. Awake and alert. Confused at times. Difficult to obtain accurate information from him. He is currently maintaining O2 saturations in the low 90s on 5 L high flow nasal cannula. He is afebrile. Hemodynamically stable. The patient is seen today 02/13/2022 in follow-up on the selective care unit. He is currently sitting up in bed. Awake and alert in no acute distress. Feeling better today compared to yesterday. Maintaining O2 saturations in the 90s on 5 L/m per nasal cannula. He's been afebrile. Hemodynamically stable. Blood cultures reveal no growth. white count 14.6. Hemoglobin 11.0. Sodium 131. Potassium 3.9. Bicarb 32. BUN 45. Creatinine 0.93. Glucose 126. Follo w-up troponin 0.848. He is continued on Symbicort, Spiriva,albuterol, IV Solu- Medrol, IV diuretics. Antibiotics in the form of Levaquin. Lovenox for DVT prophylaxis. The patient is seen today 02/14/2022 in follow-up on the selective care unit. He is currently sitting up in a chair at the bedside. Awake and alert in no acute distress. He is maintaining O2 saturations in the low 90s on 6 L high flow nasal cannula. Chest x-ray showing some interval improvement in the diffuse patchy bilateral interstitial and airspace opacities. blood cultures reveal no growth to date. Urinalysis clean. He is continued on Symbicort, Spiriva, albuterol, IV Solu-Medrol. Remains on Lovenox for DVT prophylaxis. Continued on Levaquin. He remains on IV Lasix 40 mg every 12 hours. Remains in a negative balance. Progress note dated 02/15/2022. The patient is currently on 15 L high flow nasal cannula. The patient is not receiving any IV fluids. The patient was recently turned up to the 15 L high flow cannula, because on 5 L of nasal oxygen, his saturations were only 84%. The patient appeared confused according to the respiratory therapist. Current laboratory includes a venous blood gas showing a pCO2 of 67 and a normal pH is 7.42. In addition, sodium 134, potassium 3.2, chlorides 84, CO2 39, anion gap 11, BUN 39, and creatinine 0.83. Calcium was 7.7. Chest x-ray shows a right basilar infiltrates and/or atelectasis. Objective - Vital Signs Vital signs: Vital Signs Temp 98.2 F 02/15/22 01:33 Pulse 85 02/15/22 08:15 Resp 21 02/15/22 08:15 BP 178/84 02/15/22 08:12 Pulse Ox 90 L 02/15/22 08:12 FiO2 Intake & Output 02/14/22 02/15/22 02/15/22 18:59 06:59 18:59 Intake Total 118 1080 180 Output Total 1280 1200 Balance -1162 -120 180 Weight 66.6 kg Intake: Oral 118 1080 180 Output: Urine 1280 1200 Other: Voiding Method Bedside Commode Bedside Commode Bedside Commode # Voids 1 - Exam No acute distress, a bit confused, currently on 15 L high flow oxygen. HEENT examination is grossly unremarkable. Neck supple. Full range of motion. No adenopathy thyromegaly or neck vein distention. Cardiovascular examination reveals regular rhythm rate. S1-S2 normal. No S3 or S4. No discernible murmur noted. Heart sounds are distant. Heart rate 89 bpm. Lungs reveal scattered rhonchi and crackles. Breath sounds equal bilaterally. No wheezes. Saturations are 94% on 15 L. Abdomen soft bowel sounds are heard. No masses or tenderness. Extremities are intact. No cyanosis clubbing or edema. Skin is without rash or lesion. Neurologic examination is brief but nonfocal. - Labs CBC & Chem 7: 02/13/22 08:59 02/15/22 08:02 Labs: Abnormal Lab Results - Last 24 Hours (Table) 02/15/22 02/15/22 02/15/22 Range/Units 08:02 09: 12:02 VBG pH 7.42 H (7.31-7.41) VBG pCO2 67 H (37-51) mmHg VBG HCO3 43 H (24-28) mmol/L Sodium 134 L (137-145) mmol/L Potassium 3.2 L (3.5-5.1) mmol/L Chloride 84 L (98-107) mmol/L Carbon Dioxide 39 H (22-30) mmol/L BUN 39 H (9-20) mg/dL Glucose 123 H (74-99) mg/dL POC Glucose (mg/dL) 127 H (70-110) mg/dL Calcium 7.7 L (8.4-10.2) mg/dL Microbiology - Last 24 Hours (Table) 02/11/22 17:15 Blood Culture - Preliminary Blood No Growth after 72 hours 02/11/22 17:10 Blood Culture - Preliminary Blood No Growth after 72 hours Assessment and Plan Assessment: Generalized weakness and confusion, secondary to coronavirus infection. Acute on chronic hypoxemic respiratory failure, secondary to coronavirus pneumonia, as well as diastolic congestive heart failure. Elevated troponin, may relate to supply/demand mismatch. Advanced oxygen-dependent COPD. History of hypertension. History of anxiety. BPH. Plan: Plan dated 02/15/2022. The patient's oxygen was turned up because his saturation on 5 L, was only percent. In addition, he seemed a bit confused according to respiratory therapy. The patient will continue on his current medications including Symbicort, Spiriva, albuterol, and Solu-Medrol. The patient will also continue on antibiotics. We will continue GI and DVT prophylaxis. Labs, x-rays, and medications are reviewed. Prognosis is certainly guarded. No additional recommendations are made. We will continue to follow along. Time with Patient: Less than 30
[2022-02-15 16:19] LABS: Glucose,Whole Blood 116 mg/dL (70-110)
--- NOTE | 2022-02-15 19:03 | CT ---
EXAMINATION TYPE: CT chest angio for PE DATE OF EXAM: 02/15/2022 COMPARISON: None HISTORY: hypoxia, COPD and COVID CT DLP: 495.8 mGycm Automated exposure control for dose reduction was used. CONTRAST: Performed with IV Contrast, patient injected with 68 mL of Isovue 370. Images obtained from the thoracic inlet to the diaphragm with the IV contrast. There are 3-D post pro cessed images. There is extensive interstitial infiltrate in the lungs with honeycomb pattern in the upper lobes akua aterally. There is pleural thickening at the posterior lung apices. No mediastinal mass. There is michelle e paratracheal lymph nodes up to 1 cm. There are no hilar masses. Heart size is normal. There is mode rate hiatal hernia. No pleural effusion. Thoracic aorta is intact. No aneurysm or dissection. The ascending aorta measures 3.2 cm. No evidence of filling defect in the pulmonary arteries. IMPRESSION: No evidence of pulmonary embolism. Hiatal hernia. Extensive interstitial infiltrates that could be interstitial fibrosis. Acute pneumonia also possible .
[2022-02-15 20:07] LABS: Glucose,Whole Blood 121 mg/dL (70-110)
[2022-02-16] MEDS: carvediloL 12.5 MG TAB PO SCH ×2 (06:35→16:09)
[2022-02-16] MEDS: SYMBICORT 160-4.5 MCG INHALER INHALATION SCH ×2 (07:43→20:41)
[2022-02-16] MEDS: ALBUTEROL HFA INHALER INHALATION SCH ×4 (07:43→20:41)
[2022-02-16] MEDS: TIOTROPIUM 2.5 MCG INHALER INHALATION SCH (07:44)
[2022-02-16 08:41] LABS: VBG PH 7.47 (7.31-7.41)
[2022-02-16 08:44] LABS: African American GFR (CKD) >90 (>60 ml/min/1.73 sqM); Anion Gap 9 mmol/L; Blood Urea Nitrogen 42 mg/dL (9-20); Calcium 7.9 mg/dL (8.4-10.2); Chloride 87 mmol/L (98-107); Glucose 123 mg/dL (74-99); Non-African American GFR(CKD) 78 (>60 ml/min/1.73 sqM); Potassium 3.6 mmol/L (3.5-5.1); Sodium 136 mmol/L (137-145)
[2022-02-16] MEDS: HYDROcodone/APAP 10-325MG 1 EACH TAB PO SCH (08:59)
[2022-02-16] MEDS: ASPIRIN 81 MG PO SCH (08:59)
[2022-02-16 09:00] LABS: Carbon Dioxide 40 mmol/L (22-30)
[2022-02-16] MEDS ORDERED: DEXAMETHASONE SOD PHOSPHATE 10 MG/ML 1 ML VIAL IVP SCH (09:00)
[2022-02-16] MEDS: lisinopriL 10 MG TAB PO SCH (09:00)
[2022-02-16] MEDS: TAMSULOSIN 0.4 MG CAP.ER.24H PO SCH (09:00)
[2022-02-16] MEDS: ENOXAPARIN 40 MG/0.4 ML SYRINGE SQ SCH (09:00)
[2022-02-16] MEDS: GABAPENTIN 300 MG CAP PO SCH (09:00)
--- NOTE | 2022-02-16 10:40 | P.PN ---
Subjective Progress Note Date: 02/16/22 Principal diagnosis: SOB Hospital Course: 76-year-old male with history of COPD on 2 L, hypertension, BPH presenting with dyspnea, confusion secondary to COVID pneumonia and bacterial pneumonia. Patient also being treated with COPD exacerbation in the setting of acute infection, and acute diastolic CHF exacerbation. Pulmonology and cardiology following patient. Continues to remain severely hypoxic, with increasing O2 requirement. Subjective: Patient seen and examined at bedside. No acute events overnight. He is more confused and tired compared to yesterday. Per nursing, he was on Bipap overnight, and then changed to 9L this morning. Pertinent positives and negatives as discussed above, a complete review of systems was performed and all other systems are negative. Vitals Signs Reviewed. General: nontoxic, mild acute distress, appears at stated age, appears tired Derm: warm, dry Head: atraumatic, normocephalic, symmetric Eyes: EOMI, no lid lag, anicteric sclera Mouth: no lip lesion, mucus membranes moist Cardiovascular: S1S2 reg, no murmur Lungs: bilateral rales throughout , no accessory muscle use, 9L NC Abdominal: soft, nontender to palpation, no guarding, no appreciable organomegaly Ext: no gross muscle atrophy, no edema, no contractures Neuro: CN II-XI grossly intact, no focal neuro deficits Psych: somnolent, not oriented Assessment and Plan: Acute on chronic hypoxic respiratory failure Acute COPD exacerbation COVID-19 pneumonia Possible Bacterial pneumonia -Continue supplemental oxygen, continue to wean -Elevated pro-calcitonin, patient on levofloxacin -Continue bronchodilators and steroids -O2 requirement slightly better -out of the window for monoclonal and remdisivir -CTA negative for PE Acute encephalopathy -possibly in the setting of respiratory failure and acute infection -CO2 is improved with bipap overning -no focal neurological deficits -will cut down gabapentin to only 100 TID -will discontinue hydrocodone for now Acute diastolic CHF exacerbation - resolving -Normal EF 55-60%, mild to moderately dilated right ventricle -Cardiology consulted -IV lasix switched to PO -I's and O's, monitor urine Metabolic alkalosis - likely contraction from aggressive diuresis Elevated troponin likely demand ischemia -Denies chest pain Essential hypertension -Continue home medications F: Oral E: Replete as needed N: Heart healthy A: As tolerated DVT ppx: Lovenox Code status: Full code Anticipated discharge place: Home Anticipated discharge time: 2-3 days Objective - Vital Signs Vital signs: Vital Signs Temp 98.2 F 02/16/22 08:00 Pulse 70 02/16/22 08:57 Resp 20 02/16/22 08:00 BP 161/74 02/16/22 08:00 Pulse Ox 92 L 02/16/22 08:00 FiO2 60 02/16/22 03:34 Intake & Output 02/15/22 02/16/22 02/16/22 18:59 06:59 18:59 Intake Total 180 180 Output Total 1100 1000 Balance -920 -1000 180 Intake: Oral 180 180 Output: Urine 1100 1000 Other: Voiding Method Bedside Commode Bedside Commode Bedside Commode - Labs CBC & Chem 7: 02/13/22 08:59 02/16/22 07:50 Labs: Abnormal Lab Results - Last 24 Hours (Table) 02/15/22 02/15/22 02/15/22 Range/Units 12:02 16:17 20:05 VBG pH (7.31-7.41) VBG pCO2 (37-51) mmHg VBG HCO3 (24-28) mmol/L Sodium (137-145) mmol/L Chloride (98-107) mmol/L Carbon Dioxide (22-30) mmol/L BUN (9-20) mg/dL Glucose (74-99) mg/dL POC Glucose (mg/dL) 127 H 116 H 121 H (70-110) mg/dL Calcium (8.4-10.2) mg/dL 02/16/22 02/16/22 Range/Units 07:50 07:50 VBG pH 7.47 H (7.31-7.41) VBG pCO2 57 H (37-51) mmHg VBG HCO3 41 H (24-28) mmol/L Sodium 136 L (137-145) mmol/L Chloride 87 L (98-107) mmol/L Carbon Dioxide 40 H (22-30) mmol/L BUN 42 H (9-20) mg/dL Glucose 123 H (74-99) mg/dL POC Glucose (mg/dL) (70-110) mg/dL Calcium 7.9 L (8.4-10.2) mg/dL Microbiology - Last 24 Hours (Table) 02/11/22 17:10 Blood Culture - Preliminary Blood No Growth after 96 hours 02/11/22 17:15 Blood Culture - Preliminary Blood No Growth after 96 hours
[2022-02-16] MEDS: LEVOFLOXACIN 500 MG TAB PO SCH (11:10)
[2022-02-16] MEDS: methylPREDNISolone SOD SUCCI 125 MG/2 ML VIAL IV SCH ×3 (11:10→23:40)
--- NOTE | 2022-02-16 11:24 | P.PN ---
Subjective Progress Note Date: 02/16/22 Principal diagnosis: COPD, coronavirus infection This is a 76-year-old male patient was a poor historian was brought into the emergency room yesterday with confusion, shortness of breath and positive for COVID-19. He has not vaccinated. His is also positive and hospitalized here. He has a history of oxygen dependent COPD and, hypertension, BPH, anxiety. Chest x-ray reveals mild cardiomegaly, diffuse interstitial changes, patchy bilateral opacities and trace effusions. Echocardiogram revealed normal ejection fraction 55-60%. White count 9.8. Hemoglobin 11.7. Sodium 133. Potassium 4.0. Bicarb 29. BUN 26. Creatinine 0.90. Troponin 1.67. Pro- calcitonin 35.7. Ornelas virus by PCR positive. Arterial blood gases were drawn on 40% FiO2 with a P O2 of 70, pCO2 53, pH 7.34. He is seen in consultation on the selective care unit. He is currently sitting up in bed. Awake and alert. Confused at times. Difficult to obtain accurate information from him. He is currently maintaining O2 saturations in the low 90s on 5 L high flow nasal cannula. He is afebrile. Hemodynamically stable. The patient is seen today 02/13/2022 in follow-up on the selective care unit. He is currently sitting up in bed. Awake and alert in no acute distress. Feeling better today compared to yesterday. Maintaining O2 saturations in the 90s on 5 L/m per nasal cannula. He's been afebrile. Hemodynamically stable. Blood cultures reveal no growth. white count 14.6. Hemoglobin 11.0. Sodium 131. Potassium 3.9. Bicarb 32. BUN 45. Creatinine 0.93. Glucose 126. Follo w-up troponin 0.848. He is continued on Symbicort, Spiriva,albuterol, IV Solu- Medrol, IV diuretics. Antibiotics in the form of Levaquin. Lovenox for DVT prophylaxis. The patient is seen today 02/14/2022 in follow-up on the selective care unit. He is currently sitting up in a chair at the bedside. Awake and alert in no acute distress. He is maintaining O2 saturations in the low 90s on 6 L high flow nasal cannula. Chest x-ray showing some interval improvement in the diffuse patchy bilateral interstitial and airspace opacities. blood cultures reveal no growth to date. Urinalysis clean. He is continued on Symbicort, Spiriva, albuterol, IV Solu-Medrol. Remains on Lovenox for DVT prophylaxis. Continued on Levaquin. He remains on IV Lasix 40 mg every 12 hours. Remains in a negative balance. Progress note dated 02/15/2022. The patient is currently on 15 L high flow nasal cannula. The patient is not receiving any IV fluids. The patient was recently turned up to the 15 L high flow cannula, because on 5 L of nasal oxygen, his saturations were only 84%. The patient appeared confused according to the respiratory therapist. Current laboratory includes a venous blood gas showing a pCO2 of 67 and a normal pH is 7.42. In addition, sodium 134, potassium 3.2, chlorides 84, CO2 39, anion gap 11, BUN 39, and creatinine 0.83. Calcium was 7.7. Chest x-ray shows a right basilar infiltrates and/or atelectasis. Progress note dated 02/16/2022. 76-year-old male again seen in room 369. Currently, the patient's oxygenation has been weaned down to 9 L high flow. He had a CT angiogram last night which was negative for pulmonary embolism. We will DC his Decadron in favor of Solu-Medrol, 60 mg IV push every 6 hours. He has used a BiPAP device, at 12/6 and 60%, intermittently. Yesterday, I was called by the hospitalist, who thought the patient might benefit from REM. Because of the amount of oxygen he is on, and because of symptoms present for more than 7 days, the patient was not a candidate for REM. In addition, he was not a candidate for TOCI. Today's labs include a venous blood gas showing a pCO2 of 57 and a pH of 7.47. Sodium 136, potassium 3.6, chloride 87, CO2 40, BUN 42, and creatinine 0.96. Objective - Vital Signs Vital signs: Vital Signs Temp 98.2 F 02/16/22 08:00 Pulse 70 02/16/22 08:57 Resp 20 02/16/22 08:00 BP 161/74 02/16/22 08:00 Pulse Ox 92 L 02/16/22 08:00 FiO2 60 02/16/22 03:34 Intake & Output 02/15/22 02/16/22 02/16/22 18:59 06:59 18:59 Intake Total 180 180 Output Total 1100 1000 Balance -920 -1000 180 Intake: Oral 180 180 Output: Urine 1100 1000 Other: Voiding Method Bedside Commode Bedside Commode Bedside Commode - Exam No acute distress, a bit confused, currently on 9 L high flow oxygen. HEENT examination is grossly unremarkable. Neck supple. Full range of motion. No adenopathy thyromegaly or neck vein distention. Cardiovascular examination reveals regular rhythm rate. S1-S2 normal. No S3 or S4. No discernible murmur noted. Heart sounds are distant. Heart rate 70 bpm. Lungs reveal scattered rhonchi and crackles. Breath sounds equal bilaterally. No wheezes. Saturations are 92 % on 9 L. Abdomen soft bowel sounds are heard. No masses or tenderness. Extremities are intact. No cyanosis clubbing or edema. Skin is without rash or lesion. Neurologic examination is brief but nonfocal. - Labs CBC & Chem 7: 02/13/22 08:59 02/16/22 07:50 Labs: Abnormal Lab Results - Last 24 Hours (Table) 02/15/22 02/15/22 02/15/22 Range/Units 12:02 16:17 20:05 VBG pH (7.31-7.41) VBG pCO2 (37-51) mmHg VBG HCO3 (24-28) mmol/L Sodium (137-145) mmol/L Chloride (98-107) mmol/L Carbon Dioxide (22-30) mmol/L BUN (9-20) mg/dL Glucose (74-99) mg/dL POC Glucose (mg/dL) 127 H 116 H 121 H (70-110) mg/dL Calcium (8.4-10.2) mg/dL 02/16/22 02/16/22 Range/Units 07:50 07:50 VBG pH 7.47 H (7.31-7.41) VBG pCO2 57 H (37-51) mmHg VBG HCO3 41 H (24-28) mmol/L Sodium 136 L (137-145) mmol/L Chloride 87 L (98-107) mmol/L Carbon Dioxide 40 H (22-30) mmol/L BUN 42 H (9-20) mg/dL Glucose 123 H (74-99) mg/dL POC Glucose (mg/dL) (70-110) mg/dL Calcium 7.9 L (8.4-10.2) mg/dL Microbiology - Last 24 Hours (Table) 02/11/22 17:10 Blood Culture - Preliminary Blood No Growth after 96 hours 02/11/22 17:15 Blood Culture - Preliminary Blood No Growth after 96 hours Assessment and Plan Assessment: Generalized weakness and confusion, secondary to coronavirus infection. Acute on chronic hypoxemic respiratory failure, secondary to coronavirus pneumonia, as well as diastolic congestive heart failure. Elevated troponin, may relate to supply/demand mismatch. Advanced oxygen-dependent COPD. History of hypertension. History of anxiety. BPH. Plan: Plan dated 02/15/2022. The patient's oxygen was turned up because his saturation on 5 L, was only 84 percent. In addition, he seemed a bit confused according to respiratory therapy. The patient will continue on his current medications including Symbicort, Spiriva, albuterol, and Solu-Medrol. The patient will also continue on antibiotics. We will continue GI and DVT prophylaxis. Labs, x-rays, and medications are reviewed. Prognosis is certainly guarded. No additional recommendations are made. We will continue to follow along. Plan dated 09/05/2021. The patient's oxygen was initially at 15 L. Now is down to 9 L. The patient is not a candidate for REM or TOCI. The patient did have a CT angiogram which was negative for pulmonary embolism. We will continue GI and DVT prophylaxis, as well as his other medications that can be discontinued in favor of Solu-Medrol. Additional recommendations and suggestions are forthcoming. We will continue to follow. Time with Patient: Less than 30
--- NOTE | 2022-02-16 11:42 | P.PN ---
Subjective Patient is a pleasant 76-year-old male with history of previous tobacco abuse, COPD, hypertension, on home oxygen, BPH, previous OH per patient. 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 Patient somewhat confused and unable to tell the history. He does believe she had a prior heart attack however does not recall any heart catheterization or stenting and states this was 20 years ago or so. He states he came in because of increased shortness breath or last few days. His also contracted Covid and has been hospitalized as well. He admits to mild cough and has been more short of breath however also believes it was somewhat related to his COPD. EKG showed sinus tachycardia with PACs and left axis deviation and nonspecific ST depressions in the lateral leads. X-ray shows mild cardiomegaly and diffuse interstitial changes with possible pulmonary and infiltrate versus pulmonary edema. Limited 2-D echo shows EF 55-60% with mild to moderately dilated right ventricle. 02/16/2022 Patient seen at bedside, he is lethargic, not answering questions appropriately. Not able to describe if he is short of breath or has any pain. Yesterday he Pulled out his IVs per RN. Continues to require more oxygen. Saturations at 92% 9L high flow nasal cannula. Blood pressure 158/74, heart rate 74 His currently maintained on IV Lasix 40 mg twice a day, carvedilol 25 mg twice a day, aspirin 81 mg daily, lisinopril 10 mg daily. Patient with negative fluid balance. 2.1 urine output past 24 hours. Weight decreased. Appears slightly dry on exam. No edema CT angiogram with no evidence of pulmonary embolism. Extensive interstitial infiltrates. PHYSICAL EXAMINATION Vital signs reviewed. CONSTITUTIONAL: No apparent distress, chronically ill appearing, on oxygen, poor historian LUNGS: Rhonchi bilaterally to auscultation HEART EXAMINATION: Regular rate and rhythm. EXTREMITIES: no lower extremity edema and no calf tenderness. NEUROLOGIC EXAMINATION: Patient is awake, lethargic, confused, agitated ASSESSMENT Acute on chronic heart failure with preserved ejection fraction Non-STEMI likely type II OH secondary to COVID-19, hypoxia, sepsis Reported history of OH however no history of stenting. Patient poor historian Acute on chronic respiratory failure Acute COVID-19 pneumonia Altered mental status Previous tobacco abuse Abnormal EKG Mildly dilated right ventricle likely related to underlying COPD, d-dimer normal PLAN Recommend transitioning to PO Lasix Continue home cardiac medications Monitor I/os, daily weights, renal function and electrolytes Pulmonary following Prognosis is guarded Further recommendations based on clinical course Nurse practitioner note has been reviewed by physician. Signing provider agrees with the documented findings, assessment, and plan of care. Objective - Vital Signs Vital signs: Vital Signs Temp 98.2 F 02/16/22 08:00 Pulse 74 02/16/22 11:31 Resp 20 02/16/22 11:31 BP 158/74 02/16/22 11:31 Pulse Ox 92 L 02/16/22 11:31 FiO2 60 02/16/22 03:34 Intake & Output 02/15/22 02/16/22 02/16/22 18:59 06:59 18:59 Intake Total 180 180 Output Total 1100 1000 Balance -920 -1000 180 Intake: Oral 180 180 Output: Urine 1100 1000 Other: Voiding Method Bedside Commode Bedside Commode Bedside Commode - Labs CBC & Chem 7: 02/13/22 08:59 02/16/22 07:50 Labs: Abnormal Lab Results - Last 24 Hours (Table) 02/15/22 02/15/22 02/15/22 Range/Units 12:02 16:17 20:05 VBG pH (7.31-7.41) VBG pCO2 (37-51) mmHg VBG HCO3 (24-28) mmol/L Sodium (137-145) mmol/L Chloride (98-107) mmol/L Carbon Dioxide (22-30) mmol/L BUN (9-20) mg/dL Glucose (74-99) mg/dL POC Glucose (mg/dL) 127 H 116 H 121 H (70-110) mg/dL Calcium (8.4-10.2) mg/dL 02/16/22 02/16/22 Range/Units 07:50 07:50 VBG pH 7.47 H (7.31-7.41) VBG pCO2 57 H (37-51) mmHg VBG HCO3 41 H (24-28) mmol/L Sodium 136 L (137-145) mmol/L Chloride 87 L (98-107) mmol/L Carbon Dioxide 40 H (22-30) mmol/L BUN 42 H (9-20) mg/dL Glucose 123 H (74-99) mg/dL POC Glucose (mg/dL) (70-110) mg/dL Calcium 7.9 L (8.4-10.2) mg/dL Microbiology - Last 24 Hours (Table) 02/11/22 17:10 Blood Culture - Preliminary Blood No Growth after 96 hours 02/11/22 17:15 Blood Culture - Preliminary Blood No Growth after 96 hours
[2022-02-16 11:52] LABS: Glucose,Whole Blood 139 mg/dL (70-110)
[2022-02-16] MEDS: NITROGLYCERIN SL TABS 0.4 MG TAB SUBLINGUAL PRN ×3 (13:02→13:19)
--- NOTE | 2022-02-16 13:29 | XR ---
EXAMINATION TYPE: XR chest 1V portable DATE OF EXAM: 02/16/2022 COMPARISON: 02/15/2022 HISTORY: Chest pain TECHNIQUE: Single frontal view of the chest is obtained. FINDINGS: Diffuse interstitial lung infiltrates are stable. Underlying COPD and chronic interstitial lung disease suspected. Subsegmental infiltrate right lung base. Biapical pleural thickening. Athero sclerotic change aorta. No pneumothorax. IMPRESSION: Stable bilateral diffuse interstitial pattern with basilar infiltrate or atelectasis unc hanged from prior exam. Correlate for pulmonary fibrosis. Difficult to exclude superimposed interstit ial pneumonitis.
[2022-02-16] MEDS ORDERED: ACETAMINOPHEN TAB 500 MG TAB PO SCH (16:00)
[2022-02-16] MEDS: FUROSEMIDE 20 MG TAB PO SCH (16:09)
[2022-02-16] MEDS: GABAPENTIN 100 MG CAP PO SCH (16:09)
[2022-02-16 16:55] LABS: Glucose,Whole Blood 144 mg/dL (70-110)
[2022-02-16 20:44] LABS: Glucose,Whole Blood 163 mg/dL (70-110)
[2022-02-17] MEDS: GABAPENTIN 100 MG CAP PO SCH ×4 (00:01→20:31)
[2022-02-17] MEDS: ACETAMINOPHEN TAB 500 MG TAB PO PRN ×2 (02:32→22:19)
[2022-02-17] MEDS ORDERED: MORPHINE SULFATE 2 MG/ML SYRINGE IVP STA (04:27)
[2022-02-17] MEDS ORDERED: hydrALAZINE HCL 25 MG TAB PO STA (04:27)
[2022-02-17] MEDS: NITROGLYCERIN SL TABS 0.4 MG TAB SUBLINGUAL PRN (05:43)
[2022-02-17 06:05] LABS: Glucose,Whole Blood 167 mg/dL (70-110)
[2022-02-17] MEDS: carvediloL 12.5 MG TAB PO SCH ×2 (07:04→17:52)
[2022-02-17] MEDS: methylPREDNISolone SOD SUCCI 125 MG/2 ML VIAL IV SCH ×3 (07:04→17:52)
[2022-02-17] MEDS: TIOTROPIUM 2.5 MCG INHALER INHALATION SCH (07:45)
[2022-02-17] MEDS: ALBUTEROL HFA INHALER INHALATION SCH ×4 (07:45→20:43)
[2022-02-17] MEDS: SYMBICORT 160-4.5 MCG INHALER INHALATION SCH ×2 (07:45→20:43)
[2022-02-17] MEDS ORDERED: lisinopriL 20 MG TAB PO SCH (09:00)
[2022-02-17 09:24] LABS: African American GFR (CKD) >90 (>60 ml/min/1.73 sqM); Blood Urea Nitrogen 42 mg/dL (9-20); Chloride 91 mmol/L (98-107); Glucose 146 mg/dL (74-99); Non-African American GFR(CKD) 89 (>60 ml/min/1.73 sqM); Potassium 3.4 mmol/L (3.5-5.1); Sodium 142 mmol/L (137-145)
[2022-02-17 09:28] LABS: VBG PH 7.42 (7.31-7.41)
[2022-02-17 09:31] LABS: Anion Gap 8 mmol/L
[2022-02-17 09:34] LABS: Carbon Dioxide 43 mmol/L (22-30)
--- NOTE | 2022-02-17 09:35 | P.PN ---
Subjective Progress Note Date: 02/17/22 Principal diagnosis: COPD, coronavirus infection This is a 76-year-old male patient was a poor historian was brought into the emergency room yesterday with confusion, shortness of breath and positive for COVID-19. He has not vaccinated. His is also positive and hospitalized here. He has a history of oxygen dependent COPD and, hypertension, BPH, anxiety. Chest x-ray reveals mild cardiomegaly, diffuse interstitial changes, patchy bilateral opacities and trace effusions. Echocardiogram revealed normal ejection fraction 55-60%. White count 9.8. Hemoglobin 11.7. Sodium 133. Potassium 4.0. Bicarb 29. BUN 26. Creatinine 0.90. Troponin 1.67. Pro- calcitonin 35.7. Ornelas virus by PCR positive. Arterial blood gases were drawn on 40% FiO2 with a P O2 of 70, pCO2 53, pH 7.34. He is seen in consultation on the selective care unit. He is currently sitting up in bed. Awake and alert. Confused at times. Difficult to obtain accurate information from him. He is currently maintaining O2 saturations in the low 90s on 5 L high flow nasal cannula. He is afebrile. Hemodynamically stable. The patient is seen today 02/13/2022 in follow-up on the selective care unit. He is currently sitting up in bed. Awake and alert in no acute distress. Feeling better today compared to yesterday. Maintaining O2 saturations in the 90s on 5 L/m per nasal cannula. He's been afebrile. Hemodynamically stable. Blood cultures reveal no growth. white count 14.6. Hemoglobin 11.0. Sodium 131. Potassium 3.9. Bicarb 32. BUN 45. Creatinine 0.93. Glucose 126. Follo w-up troponin 0.848. He is continued on Symbicort, Spiriva,albuterol, IV Solu- Medrol, IV diuretics. Antibiotics in the form of Levaquin. Lovenox for DVT prophylaxis. The patient is seen today 02/14/2022 in follow-up on the selective care unit. He is currently sitting up in a chair at the bedside. Awake and alert in no acute distress. He is maintaining O2 saturations in the low 90s on 6 L high flow nasal cannula. Chest x-ray showing some interval improvement in the diffuse patchy bilateral interstitial and airspace opacities. blood cultures reveal no growth to date. Urinalysis clean. He is continued on Symbicort, Spiriva, albuterol, IV Solu-Medrol. Remains on Lovenox for DVT prophylaxis. Continued on Levaquin. He remains on IV Lasix 40 mg every 12 hours. Remains in a negative balance. Progress note dated 02/15/2022. The patient is currently on 15 L high flow nasal cannula. The patient is not receiving any IV fluids. The patient was recently turned up to the 15 L high flow cannula, because on 5 L of nasal oxygen, his saturations were only 84%. The patient appeared confused according to the respiratory therapist. Current laboratory includes a venous blood gas showing a pCO2 of 67 and a normal pH is 7.42. In addition, sodium 134, potassium 3.2, chlorides 84, CO2 39, anion gap 11, BUN 39, and creatinine 0.83. Calcium was 7.7. Chest x-ray shows a right basilar infiltrates and/or atelectasis. Progress note dated 02/16/2022. 76-year-old male again seen in room 369. Currently, the patient's oxygenation has been weaned down to 9 L high flow. He had a CT angiogram last night which was negative for pulmonary embolism. We will DC his Decadron in favor of Solu-Medrol, 60 mg IV push every 6 hours. He has used a BiPAP device, at 12/6 and 60%, intermittently. Yesterday, I was called by the hospitalist, who thought the patient might benefit from REM. Because of the amount of oxygen he is on, and because of symptoms present for more than 7 days, the patient was not a candidate for REM. In addition, he was not a candidate for TOCI. Today's labs include a venous blood gas showing a pCO2 of 57 and a pH of 7.47. Sodium 136, potassium 3.6, chloride 87, CO2 40, BUN 42, and creatinine 0.96. Progress note dated 02/17/2022. 76-year-old male again seen in room 369. Patient is currently on a liter high flow oxygen. He is not receiving any IV fluids. The patient has a sitter in the room with him. He does appear to be somewhat confused. The patient remains a full code. No new laboratory data today other than a blood sugar of 167. Blood cultures are negative. A CT angiogram that was recently done, was negative for pulmonary embolism. The patient's Decadron was changed to Solu- Medrol. The patient was not a candidate for REM, or TOCI. Objective - Vital Signs Vital signs: Vital Signs Temp 96.8 F L 02/17/22 08:00 Pulse 71 02/17/22 08:00 Resp 18 02/17/22 08:00 BP 159/70 02/17/22 08:00 Pulse Ox 93 L 02/17/22 08:00 FiO2 60 02/16/22 03:34 Intake & Output 02/16/22 02/17/22 02/17/22 18:59 06:59 18:59 Intake Total 180 Output Total 550 200 Balance -370 -200 Intake: Oral 180 Output: Urine 550 200 Other: Voiding Method Bedside Commode Bedside Commode - Exam No acute distress, a bit confused, currently on 12 L high flow oxygen. HEENT examination is grossly unremarkable. Neck supple. Full range of motion. No adenopathy thyromegaly or neck vein dis tention. Cardiovascular examination reveals regular rhythm rate. S1-S2 normal. No S3 or S4. No discernible murmur noted. Heart sounds are distant. Heart rate 71 bpm. Lungs reveal scattered rhonchi and crackles. Breath sounds equal bilaterally. No wheezes. Saturations are 93% on 12 L high flow O2. Abdomen soft bowel sounds are heard. No masses or tenderness. Extremities are intact. No cyanosis clubbing or edema. Skin is without rash or lesion. Neurologic examination is brief but nonfocal. - Labs CBC & Chem 7: 02/13/22 08:59 02/16/22 07:50 Labs: Abnormal Lab Results - Last 24 Hours (Table) 02/16/22 02/16/22 02/16/22 Range/Units 11:50 13:01 16:53 POC Glucose (mg/dL) 139 H 144 H (70-110) mg/dL Troponin I 0.175 H* (0.000-0.034) ng/mL 02/16/22 02/17/22 Range/Units 20:43 06:04 POC Glucose (mg/dL) 163 H 167 H (70-110) mg/dL Troponin I (0.000-0.034) ng/mL Microbiology - Last 24 Hours (Table) 02/11/22 17:15 Blood Culture - Preliminary Blood No Growth after 120 hours 02/11/22 17:10 Blood Culture - Preliminary Blood No Growth after 120 hours Assessment and Plan Assessment: Generalized weakness and confusion, secondary to coronavirus infection. Acute on chronic hypoxemic respiratory failure, secondary to coronavirus pneumonia, as well as diastolic congestive heart failure. Elevated troponin, may relate to supply/demand mismatch. Advanced oxygen-dependent COPD. History of hypertension. History of anxiety. BPH. Plan: Plan dated 02/15/2022. The patient's oxygen was turned up because his saturation on 5 L, was only 84 percent. In addition, he seemed a bit confused according to respiratory therapy. The patient will continue on his current medications including Symbicort, Spiriva, albuterol, and Solu-Medrol. The patient will also continue on antibiotics. We will continue GI and DVT prophylaxis. Labs, x-rays, and med ications are reviewed. Prognosis is certainly guarded. No additional recommendations are made. We will continue to follow along. Plan dated 02/16/2022. The patient's oxygen was initially at 15 L. Now is down to 9 L. The patient is not a candidate for REM or TOCI. The patient did have a CT angiogram which was negative for pulmonary embolism. We will continue GI and DVT prophylaxis, as well as his other medications that can be discontinued in favor of Solu-Medrol. Additional recommendations and suggestions are forthcoming. We will continue to follow. Plan dated 02/17/2022. The patient's oxygen is set at 12 L high flow. The patient is not requiring any IV fluids. Saturations are between 93 and 95%. Blood pressure is 159/70. Heart rate is 71, respiratory rate 18, his temperature is normal. No new labs or x-rays to review. The patient remains on albuterol inhaler, Symbicort, Levaquin, and Solu-Medrol. He also is getting Spiriva. Chest x-ray from February 16 shows diffuse and stable interstitial changes. His overall prognosis remains very guarded. Time with Patient: Less than 30
[2022-02-17] MEDS: ASPIRIN 81 MG PO SCH (10:10)
[2022-02-17] MEDS: HYDROcodone/APAP 10-325MG 1 EACH TAB PO PRN ×2 (10:10→17:51)
[2022-02-17] MEDS: ENOXAPARIN 40 MG/0.4 ML SYRINGE SQ SCH (10:10)
[2022-02-17] MEDS: TAMSULOSIN 0.4 MG CAP.ER.24H PO SCH (10:11)
[2022-02-17 11:13] VITALS: BMI 22.3
[2022-02-17 11:38] LABS: Glucose,Whole Blood 172 mg/dL (70-110)
--- NOTE | 2022-02-17 12:19 | P.PN ---
Subjective Patient is a pleasant 76-year-old male with history of previous tobacco abuse, COPD, hypertension, on home oxygen, BPH, previous MS per patient. 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 Patient somewhat confused and unable to tell the history. He does believe she had a prior heart attack however does not recall any heart catheterization or stenting and states this was 20 years ago or so. He states he came in because of increased shortness breath or last few days. His also contracted Covid and has been hospitalized as well. He admits to mild cough and has been more short of breath however also believes it was somewhat related to his COPD. EKG showed sinus tachycardia with PACs and left axis deviation and nonspecific ST depressions in the lateral leads. X-ray shows mild cardiomegaly and diffuse interstitial changes with possible pulmonary and infiltrate versus pulmonary edema. Limited 2-D echo shows EF 55-60% with mild to moderately dilated right ventricle. 02/17/2022 Patient seen at bedside, he appears more alert this morning, His O2 has been weaned but continues to be at 10L High flow nasal cannula. Continues to not answer questions appropriately. When asked if he is having pain, he states it "in my lips". He was complaining of chest pain to the RN yesterday, repeat EKG no acute changes. At this time, patient BP was significantly elevated SBP 200s. He was given a one time dose of PO hydralazine 25mg. BP improved. Blood pressure 149/70, heart rate 71. His currently maintained on PO Lasix 40 mg twice a day, carvedilol 25 mg twice a day, aspirin 81 mg daily, lisinopril 10 mg daily. PHYSICAL EXAMINATION Vital signs reviewed. CONSTITUTIONAL: No apparent distress, chronically ill appearing, on oxygen, poor historian LUNGS: Rhonchi bilaterally to auscultation HEART EXAMINATION: Regular rate and rhythm. EXTREMITIES: no lower extremity edema and no calf tenderness. NEUROLOGIC EXAMINATION: Patient is awake, lethargic, confused, agitated ASSESSMENT Acute on chronic heart failure with preserved ejection fraction Non-STEMI likely type II MS secondary to COVID-19, hypoxia, sepsis Reported history of MS however no history of stenting. Patient poor historian Acute on chronic respiratory failure Acute COVID-19 pneumonia Altered mental status Previous tobacco abuse Abnormal EKG Mildly dilated right ventricle likely related to underlying COPD, d-dimer normal PLAN Lasix on hold Increase lisinopril 30mg daily Continue home cardiac medications Pulmonary following Prognosis is guarded Further recommendations based on clinical course Nurse practitioner note has been reviewed by physician. Signing provider agrees with the documented findings, assessment, and plan of care. Objective - Vital Signs Vital signs: Vital Signs Temp 96.8 F L 02/17/22 08:00 Pulse 71 02/17/22 08:00 Resp 18 02/17/22 08:00 BP 159/70 02/17/22 08:00 Pulse Ox 93 L 02/17/22 08:00 FiO2 60 02/16/22 03:34 Intake & Output 02/16/22 02/17/22 02/17/22 18:59 06:59 18:59 Intake Total 180 Output Total 550 200 Balance -370 -200 Weight 66.6 kg Intake: Oral 180 Output: Urine 550 200 Other: Voiding Method Bedside Commode Bedside Commode - Labs CBC & Chem 7: 02/13/22 08:59 02/17/22 08:30 Labs: Abnormal Lab Results - Last 24 Hours (Table) 02/16/22 02/16/22 02/16/22 Range/Units 13:01 16:53 20:43 VBG pH (7.31-7.41) VBG pCO2 (37-51) mmHg VBG HCO3 (24-28) mmol/L Potassium (3.5-5.1) mmol/L Chloride (98-107) mmol/L Carbon Dioxide (22-30) mmol/L BUN (9-20) mg/dL Glucose (74-99) mg/dL POC Glucose (mg/dL) 144 H 163 H (70-110) mg/dL Calcium (8.4-10.2) mg/dL Troponin I 0.175 H* (0.000-0.034) ng/mL 02/17/22 02/17/22 02/17/22 Range/Units 06:04 08:30 08:30 VBG pH 7.42 H (7.31-7.41) VBG pCO2 67 H (37-51) mmHg VBG HCO3 44 H (24-28) mmol/L Potassium 3.4 L (3.5-5.1) mmol/L Chloride 91 L (98-107) mmol/L Carbon Dioxide 43 H* (22-30) mmol/L BUN 42 H (9-20) mg/dL Glucose 146 H (74-99) mg/dL POC Glucose (mg/dL) 167 H (70-110) mg/dL Calcium 8.0 L (8.4-10.2) mg/dL Troponin I (0.000-0.034) ng/mL 02/17/22 Range/Units 11:37 VBG pH (7.31-7.41) VBG pCO2 (37-51) mmHg VBG HCO3 (24-28) mmol/L Potassium (3.5-5.1) mmol/L Chloride (98-107) mmol/L Carbon Dioxide (22-30) mmol/L BUN (9-20) mg/dL Glucose (74-99) mg/dL POC Glucose (mg/dL) 172 H (70-110) mg/dL Calcium (8.4-10.2) mg/dL Troponin I (0.000-0.034) ng/mL Microbiology - Last 24 Hours (Table) 02/11/22 17:15 Blood Culture - Preliminary Blood No Growth after 120 hours 02/11/22 17:10 Blood Culture - Preliminary Blood No Growth after 120 hours
--- NOTE | 2022-02-17 12:23 | P.PN ---
Subjective Progress Note Date: 02/17/22 Principal diagnosis: SOB Hospital Course: 76-year-old male with history of COPD on 2 L, hypertension, BPH presenting with dyspnea, confusion secondary to COVID pneumonia and bacterial pneumonia. Patient also being treated with COPD exacerbation in the setting of acute infection, and acute diastolic CHF exacerbation. Pulmonology and cardiology following patient. Continues to remain severely hypoxic, with increasing O2 requirement. No longer in CHF exacerbation, adequately diuresed. Subjective: Patient seen and examined at bedside. No acute events overnight. He is more awake and alert this morning. He is complaining about severe back pain and ask ing for his home norco. He denies any worsening of his SOB. He denies further chest pain, abdominal pain, diarrhea or constipation. Per nurse, his oral intake has been poor. Pertinent positives and negatives as discussed above, a complete review of systems was performed and all other systems are negative. Vitals Signs Reviewed. General: nontoxic, no acute distress, appears at stated age, tired appearing Derm: warm, dry Head: atraumatic, normocephalic, symmetric Eyes: EOMI, no lid lag, anicteric sclera Mouth: no lip lesion, mucus membranes moist Cardiovascular: S1S2 reg, no murmur Lungs: bilateral rales throughout , no accessory muscle use, 12L NC Abdominal: soft, nontender to palpation, no guarding, no appreciable organomegaly Ext: no gross muscle atrophy, no edema, no contractures Neuro: CN II-XI grossly intact, no focal neuro deficits Psych: awake and oriented x2 (not to place) Assessment and Plan: Acute on chronic hypoxic respiratory failure Acute COPD exacerbation COVID-19 pneumonia Possible Bacterial pneumonia -Continue supplemental oxygen, continue to wean -Elevated pro-calcitonin, patient on levofloxacin -Continue bronchodilators and steroids -O2 requirement still high -out of the window for monoclonal and remdisivir -CTA negative for PE -pulmonology following Acute encephalopathy - resolving -possibly in the setting of respiratory failure and acute infection -no focal neurological deficits -on reduced dose of gabapentin -will restart home norco Acute diastolic CHF exacerbation - resolved -Normal EF 55-60%, mild to moderately dilated right ventricle -Cardiology consulted -lasix held, now euvolemic -I's and O's, monitor urine Metabolic alkalosis - likely contraction from aggressive diuresis Elevated troponin likely demand ischemia -Denies chest pain Essential hypertension -Continue home medications F: Oral E: Replete as needed N: Heart healthy A: As tolerated DVT ppx: Lovenox Code status: Full code Anticipated discharge place: Home Anticipated discharge time: 2-3 days Objective - Vital Signs Vital signs: Vital Signs Temp 96.8 F L 02/17/22 08:00 Pulse 71 02/17/22 08:00 Resp 18 02/17/22 08:00 BP 159/70 02/17/22 08:00 Pulse Ox 93 L 02/17/22 08:00 FiO2 60 02/16/22 03:34 Intake & Output 02/16/22 02/17/22 02/17/22 18:59 06:59 18:59 Intake Total 180 Output Total 550 200 Balance -370 -200 Weight 66.6 kg Intake: Oral 180 Output: Urine 550 200 Other: Voiding Method Bedside Commode Bedside Commode - Labs CBC & Chem 7: 02/13/22 08:59 02/17/22 08:30 Labs: Abnormal Lab Results - Last 24 Hours (Table) 02/16/22 02/16/22 02/16/22 Range/Units 13:01 16:53 20:43 VBG pH (7.31-7.41) VBG pCO2 (37-51) mmHg VBG HCO3 (24-28) mmol/L Potassium (3.5-5.1) mmol/L Chloride (98-107) mmol/L Carbon Dioxide (22-30) mmol/L BUN (9-20) mg/dL Glucose (74-99) mg/dL POC Glucose (mg/dL) 144 H 163 H (70-110) mg/dL Calcium (8.4-10.2) mg/dL Troponin I 0.175 H* (0.000-0.034) ng/mL 02/17/22 02/17/22 02/17/22 Range/Units 06:04 08:30 08:30 VBG pH 7.42 H (7.31-7.41) VBG pCO2 67 H (37-51) mmHg VBG HCO3 44 H (24-28) mmol/L Potassium 3.4 L (3.5-5.1) mmol/L Chloride 91 L (98-107) mmol/L Carbon Dioxide 43 H* (22-30) mmol/L BUN 42 H (9-20) mg/dL Glucose 146 H (74-99) mg/dL POC Glucose (mg/dL) 167 H (70-110) mg/dL Calcium 8.0 L (8.4-10.2) mg/dL Troponin I (0.000-0.034) ng/mL 02/17/22 Range/Units 11:37 VBG pH (7.31-7.41) VBG pCO2 (37-51) mmHg VBG HCO3 (24-28) mmol/L Potassium (3.5-5.1) mmol/L Chloride (98-107) mmol/L Carbon Dioxide (22-30) mmol/L BUN (9-20) mg/dL Glucose (74-99) mg/dL POC Glucose (mg/dL) 172 H (70-110) mg/dL Calcium (8.4-10.2) mg/dL Troponin I (0.000-0.034) ng/mL Microbiology - Last 24 Hours (Table) 02/11/22 17:15 Blood Culture - Preliminary Blood No Growth after 120 hours 02/11/22 17:10 Blood Culture - Preliminary Blood No Growth after 120 hours
[2022-02-17] MEDS: LEVOFLOXACIN 500 MG TAB PO SCH (14:07)
[2022-02-17 16:41] LABS: Glucose,Whole Blood 143 mg/dL (70-110)
[2022-02-17 20:46] LABS: Glucose,Whole Blood 163 mg/dL (70-110)
[2022-02-17] MEDS: FUROSEMIDE 20 MG TAB PO SCH (20:56)
[2022-02-18] MEDS: methylPREDNISolone SOD SUCCI 125 MG/2 ML VIAL IV SCH ×5 (00:51→23:10)
[2022-02-18] MEDS: HYDROcodone/APAP 10-325MG 1 EACH TAB PO PRN (03:36)
[2022-02-18] MEDS: carvediloL 12.5 MG TAB PO SCH ×2 (06:08→15:41)
[2022-02-18 06:09] LABS: Glucose,Whole Blood 153 mg/dL (70-110)
[2022-02-18 07:49] LABS: VBG PH 7.47 (7.31-7.41)
[2022-02-18 08:07] LABS: African American GFR (CKD) >90 (>60 ml/min/1.73 sqM); Blood Urea Nitrogen 38 mg/dL (9-20); Calcium 8.3 mg/dL (8.4-10.2); Chloride 92 mmol/L (98-107); Glucose 154 mg/dL (74-99); Magnesium 2.4 mg/dL (1.6-2.3); Non-African American GFR(CKD) 87 (>60 ml/min/1.73 sqM); Potassium 3.7 mmol/L (3.5-5.1); Sodium 142 mmol/L (137-145)
[2022-02-18 08:14] LABS: Anion Gap 5 mmol/L
[2022-02-18 08:25] LABS: Carbon Dioxide 45 mmol/L (22-30)
[2022-02-18] MEDS: SYMBICORT 160-4.5 MCG INHALER INHALATION SCH ×2 (08:33→19:35)
[2022-02-18] MEDS: TIOTROPIUM 2.5 MCG INHALER INHALATION SCH (08:33)
[2022-02-18] MEDS: ALBUTEROL HFA INHALER INHALATION SCH ×4 (08:33→19:35)
[2022-02-18] MEDS: ENOXAPARIN 40 MG/0.4 ML SYRINGE SQ SCH (09:29)
[2022-02-18] MEDS: LEVOFLOXACIN 500 MG TAB PO SCH (09:29)
[2022-02-18] MEDS: ASPIRIN 81 MG PO SCH (09:29)
[2022-02-18] MEDS: lisinopriL 10 MG TAB PO SCH (09:29)
[2022-02-18] MEDS: TAMSULOSIN 0.4 MG CAP.ER.24H PO SCH (09:29)
[2022-02-18] MEDS: GABAPENTIN 100 MG CAP PO SCH ×3 (09:29→20:36)
--- NOTE | 2022-02-18 10:35 | P.PN ---
Subjective Progress Note Date: 02/18/22 Principal diagnosis: COPD, coronavirus infection This is a 76-year-old male patient was a poor historian was brought into the emergency room yesterday with confusion, shortness of breath and positive for COVID-19. He has not vaccinated. His is also positive and hospitalized here. He has a history of oxygen dependent COPD and, hypertension, BPH, anxiety. Chest x-ray reveals mild cardiomegaly, diffuse interstitial changes, patchy bilateral opacities and trace effusions. Echocardiogram revealed normal ejection fraction 55-60%. White count 9.8. Hemoglobin 11.7. Sodium 133. Potassium 4.0. Bicarb 29. BUN 26. Creatinine 0.90. Troponin 1.67. Pro- calcitonin 35.7. Ornelas virus by PCR positive. Arterial blood gases were drawn on 40% FiO2 with a P O2 of 70, pCO2 53, pH 7.34. He is seen in consultation on the selective care unit. He is currently sitting up in bed. Awake and alert. Confused at times. Difficult to obtain accurate information from him. He is currently maintaining O2 saturations in the low 90s on 5 L high flow nasal cannula. He is afebrile. Hemodynamically stable. The patient is seen today 02/13/2022 in follow-up on the selective care unit. He is currently sitting up in bed. Awake and alert in no acute distress. Feeling better today compared to yesterday. Maintaining O2 saturations in the 90s on 5 L/m per nasal cannula. He's been afebrile. Hemodynamically stable. Blood cultures reveal no growth. white count 14.6. Hemoglobin 11.0. Sodium 131. Potassium 3.9. Bicarb 32. BUN 45. Creatinine 0.93. Glucose 126. Follo w-up troponin 0.848. He is continued on Symbicort, Spiriva,albuterol, IV Solu- Medrol, IV diuretics. Antibiotics in the form of Levaquin. Lovenox for DVT prophylaxis. The patient is seen today 02/14/2022 in follow-up on the selective care unit. He is currently sitting up in a chair at the bedside. Awake and alert in no acute distress. He is maintaining O2 saturations in the low 90s on 6 L high flow nasal cannula. Chest x-ray showing some interval improvement in the diffuse patchy bilateral interstitial and airspace opacities. blood cultures reveal no growth to date. Urinalysis clean. He is continued on Symbicort, Spiriva, albuterol, IV Solu-Medrol. Remains on Lovenox for DVT prophylaxis. Continued on Levaquin. He remains on IV Lasix 40 mg every 12 hours. Remains in a negative balance. Progress note dated 02/15/2022. The patient is currently on 15 L high flow nasal cannula. The patient is not receiving any IV fluids. The patient was recently turned up to the 15 L high flow cannula, because on 5 L of nasal oxygen, his saturations were only 84%. The patient appeared confused according to the respiratory therapist. Current laboratory includes a venous blood gas showing a pCO2 of 67 and a normal pH is 7.42. In addition, sodium 134, potassium 3.2, chlorides 84, CO2 39, anion gap 11, BUN 39, and creatinine 0.83. Calcium was 7.7. Chest x-ray shows a right basilar infiltrates and/or atelectasis. Progress note dated 02/16/2022. 76-year-old male again seen in room 369. Currently, the patient's oxygenation has been weaned down to 9 L high flow. He had a CT angiogram last night which was negative for pulmonary embolism. We will DC his Decadron in favor of Solu-Medrol, 60 mg IV push every 6 hours. He has used a BiPAP device, at 12/6 and 60%, intermittently. Yesterday, I was called by the hospitalist, who thought the patient might benefit from REM. Because of the amount of oxygen he is on, and because of symptoms present for more than 7 days, the patient was not a candidate for REM. In addition, he was not a candidate for TOCI. Today's labs include a venous blood gas showing a pCO2 of 57 and a pH of 7.47. Sodium 136, potassium 3.6, chloride 87, CO2 40, BUN 42, and creatinine 0.96. Progress note dated 02/17/2022. 76-year-old male again seen in room 369. Patient is currently on a liter high flow oxygen. He is not receiving any IV fluids. The patient has a sitter in the room with him. He does appear to be somewhat confused. The patient remains a full code. No new laboratory data today other than a blood sugar of 167. Blood cultures are negative. A CT angiogram that was recently done, was negative for pulmonary embolism. The patient's Decadron was changed to Solu- Medrol. The patient was not a candidate for REM, or TOCI. Progress note dated 02/18/2022. 76-year-old male seen again in room 369. Currently, he's on 11 L high flow ox ygen. He's not receiving any IV fluids. I believe he is about the same today as he was yesterday. He does have a sitter. A venous blood gas shows a pCO2 of 61 and a pH is 7.47. Sodium 142, potassium 3.7, chlorides 92, CO2 5, BUN 38, creatinine 0.83. Blood cultures are negative. Chest x-ray from February 16 showed diffuse bilateral infiltrates, that are stable. Objective - Vital Signs Vital signs: Vital Signs Temp 97.6 F 02/18/22 09:32 Pulse 79 02/18/22 09:32 Resp 20 02/18/22 09:32 BP 192/89 02/18/22 09:32 Pulse Ox 91 L 02/18/22 09:32 FiO2 60 02/16/22 03:34 Intake & Output 02/17/22 02/18/22 02/18/22 18:59 06:59 18:59 Intake Total 200 Output Total 200 200 Balance -200 0 Weight 66.6 kg Intake: Oral 200 Output: Urine 200 200 Other: Voiding Method Bedside Commode Bedside Commode - Exam No acute distress, a bit confused, currently on 11 L high flow oxygen. HEENT examination is grossly unremarkable. Neck supple. Full range of motion. No adenopathy thyromegaly or neck vein distention. Cardiovascular examination reveals regular rhythm rate. S1-S2 normal. No S3 or S4. No discernible murmur noted. Heart sounds are distant. Heart rate 79 bpm. Lungs reveal scattered rhonchi and crackles. Breath sounds equal bilaterally. No wheezes. Saturations are 92% on 11 L high flow. Abdomen soft bowel sounds are heard. No masses or tenderness. Extremities are intact. No cyanosis clubbing or edema. Skin is without rash or lesion. Neurologic examination is brief but nonfocal. - Labs CBC & Chem 7: 02/13/22 08:59 02/18/22 07:01 Labs: Abnormal Lab Results - Last 24 Hours (Table) 02/17/22 02/17/22 02/17/22 Range/Units 11:37 16:39 20:44 VBG pH (7.31-7.41) VBG pCO2 (37-51) mmHg VBG HCO3 (24-28) mmol/L Chloride (98-107) mmol/L Carbon Dioxide (22-30) mmol/L BUN (9-20) mg/dL Glucose (74-99) mg/dL POC Glucose (mg/dL) 172 H 143 H 163 H (70-110) mg/dL Calcium (8.4-10.2) mg/dL Magnesium (1.6-2.3) mg/dL 02/18/22 02/18/22 02/18/22 Range/Units 06:07 07:01 07:01 VBG pH 7.47 H (7.31-7.41) VBG pCO2 61 H (37-51) mmHg VBG HCO3 44 H (24-28) mmol/L Chloride 92 L (98-107) mmol/L Carbon Dioxide 45 H* (22-30) mmol/L BUN 38 H (9-20) mg/dL Glucose 154 H (74-99) mg/dL POC Glucose (mg/dL) 153 H (70-110) mg/dL Calcium 8.3 L (8.4-10.2) mg/dL Magnesium 2.4 H (1.6-2.3) mg/dL Microbiology - Last 24 Hours (Table) 02/11/22 17:15 Blood Culture - Final Blood No Growth after 144 hours 02/11/22 17:10 Blood Culture - Final Blood No Growth after 144 hours Assessment and Plan Assessment: Generalized weakness and confusion, secondary to coronavirus infection. Acute on chronic hypoxemic respiratory failure, secondary to coronavirus pneumonia, as well as diastolic congestive heart failure. Elevated troponin, may relate to supply/demand mismatch. Advanced oxygen-dependent COPD. History of hypertension. History of anxiety. BPH. Plan: Plan dated 02/15/2022. The patient's oxygen was turned up because his saturation on 5 L, was only 84 percent. In addition, he seemed a bit confused according to respiratory therapy. The patient will continue on his current medications including Symbicort, Spiriva, albuterol, and Solu-Medrol. The patient will also continue on antibiotics. We will continue GI and DVT prophylaxis. Labs, x-rays, and medications are reviewed. Prognosis is certainly guarded. No additional recommendations are made. We will continue to follow along. Plan dated 02/16/2022. The patient's oxygen was initially at 15 L. Now is down to 9 L. The patient is not a candidate for REM or TOCI. The patient did have a CT angiogram which was negative for pulmonary embolism. We will continue GI and DVT prophylaxis, as well as his other medications that can be discontinued in favor of Solu-Medrol. Additional recommendations and suggestions are forthcoming. We will continue to follow. Plan dated 02/17/2022. The patient's oxygen is set at 12 L high flow. The patient is not requiring any IV fluids. Saturations are between 93 and 95%. Blood pressure is 159/70. Heart rate is 71, respiratory rate 18, his temperature is normal. No new labs or x-rays to review. The patient remains on albuterol inhaler, Symbicort, Levaquin, and Solu-Medrol. He also is getting Spiriva. Chest x-ray from February 16 shows diffuse and stable interstitial changes. His overall prognosis remains very guarded. Plan dated 02/18/2022. The patient is currently on 11 L high flow oxygen. Saturations are in the low 9 0s. Labs, x-rays, and medications all reviewed. He's currently on albuterol inhaler, Symbicort, Solu-Medrol, and Spiriva. We will continue to follow make recommendations along the way. Overall prognosis remains guarded. The patient will have a follow-up chest x-ray in the morning. We will continue with GI and DVT prophylaxis. Time with Patient: Less than 30
[2022-02-18 12:03] LABS: Glucose,Whole Blood 145 mg/dL (70-110)
[2022-02-18] MEDS: amLODIPine 10 MG TAB PO SCH (13:03)
[2022-02-18] MEDS: HYDROcodone/APAP 5-325MG 1 EACH TAB PO PRN ×2 (13:03→20:36)
--- NOTE | 2022-02-18 13:06 | P.PN ---
Subjective Progress Note Date: 02/18/22 Principal diagnosis: SOB Hospital Course: 76-year-old male with history of COPD on 2 L, hypertension, BPH presenting with dyspnea, confusion secondary to COVID pneumonia and bacterial pneumonia. Patient also being treated with COPD exacerbation in the setting of acute infection, and acute diastolic CHF exacerbation. Pulmonology and cardiology following patient. Continues to remain severely hypoxic, with increasing O2 requirement. No longer in CHF exacerbation, adequately diuresed. Subjective: Patient seen and examined at bedside. No acute events overnight. Not much changed in terms of mental status or his respiratory function today compared to yesterday. He denies any worsening of his SOB. He denies further chest pain, abdominal pain, diarrhea or constipation. Per nurse, his oral intake has been poor. Pertinent positives and negatives as discussed above, a complete review of systems was performed and all other systems are negative. Vitals Signs Reviewed. General: nontoxic, no acute distress, appears at stated age, Derm: warm, dry Head: atraumatic, normocephalic, symmetric Eyes: EOMI, no lid lag, anicteric sclera Mouth: no lip lesion, mucus membranes moist Cardiovascular: S1S2 reg, no murmur Lungs: bilateral rales throughout , no accessory muscle use, 14L NC Abdominal: soft, nontender to palpation, no guarding, no appreciable or ganomegaly Ext: no gross muscle atrophy, no edema, no contractures Neuro: CN II-XI grossly intact, no focal neuro deficits Psych: awake and very upset when asked about orientation questions Assessment and Plan: Acute on chronic hypoxic respiratory failure Acute COPD exacerbation COVID-19 pneumonia Possible Bacterial pneumonia -Continue supplemental oxygen, continue to wean -Elevated pro-calcitonin, patient on levofloxacin -Continue bronchodilators and steroids -O2 requirement still high -out of the window for monoclonal and remdisivir -CTA negative for PE -pulmonology following Acute encephalopathy -possibly in the setting of respiratory failure and acute infection -no focal neurological deficits -on reduced dose of gabapentin -reduced dose of norco Acute diastolic CHF exacerbation - resolved -Normal EF 55-60%, mild to moderately dilated right ventricle -Cardiology consulted -lasix held, now euvolemic -I's and O's, monitor urine Metabolic alkalosis - likely contraction from aggressive diuresis Elevated troponin likely demand ischemia -Denies chest pain Essential hypertension -Continue home medications -will add amlodipine F: Oral E: Replete as needed N: Heart healthy A: As tolerated DVT ppx: Lovenox Code status: Full code Anticipated discharge place: Home Anticipated discharge time: 2+ days Objective - Vital Signs Vital signs: Vital Signs Temp 97.6 F 02/18/22 09:32 Pulse 79 02/18/22 09:32 Resp 20 02/18/22 09:32 BP 192/89 02/18/22 09:32 Pulse Ox 91 L 02/18/22 09:32 FiO2 60 02/16/22 03:34 Intake & Output 02/17/22 02/18/22 02/18/22 18:59 06:59 18:59 Intake Total 200 Output Total 200 200 Balance -200 0 Weight 66.6 kg Intake: Oral 200 Output: Urine 200 200 Other: Voiding Method Bedside Commode Bedside Commode Bedside Commode - Labs CBC & Chem 7: 02/13/22 08:59 02/18/22 07:01 Labs: Abnormal Lab Results - Last 24 Hours (Table) 02/17/22 02/17/22 02/18/22 Range/Units 16:39 20:44 06:07 VBG pH (7.31-7.41) VBG pCO2 (37-51) mmHg VBG HCO3 (24-28) mmol/L Chloride (98-107) mmol/L Carbon Dioxide (22-30) mmol/L BUN (9-20) mg/dL Glucose (74-99) mg/dL POC Glucose (mg/dL) 143 H 163 H 153 H (70-110) mg/dL Calcium (8.4-10.2) mg/dL Magnesium (1.6-2.3) mg/dL 02/18/22 02/18/22 02/18/22 Range/Units 07:01 07:01 11:47 VBG pH 7.47 H (7.31-7.41) VBG pCO2 61 H (37-51) mmHg VBG HCO3 44 H (24-28) mmol/L Chloride 92 L (98-107) mmol/L Carbon Dioxide 45 H* (22-30) mmol/L BUN 38 H (9-20) mg/dL Glucose 154 H (74-99) mg/dL POC Glucose (mg/dL) 145 H (70-110) mg/dL Calcium 8.3 L (8.4-10.2) mg/dL Magnesium 2.4 H (1.6-2.3) mg/dL Microbiology - Last 24 Hours (Table) 02/11/22 17:15 Blood Culture - Final Blood No Growth after 144 hours 02/11/22 17:10 Blood Culture - Final Blood No Growth after 144 hours
--- NOTE | 2022-02-18 13:35 | P.PN ---
Subjective Patient is a pleasant 76-year-old male with history of previous tobacco abuse, COPD, hypertension, on home oxygen, BPH, previous MO per patient. He does not follow with a plaster helper that is known. Patient somewhat confused and unable to tell the history. He does believe she had a prior heart attack however does not recall any heart catheterization or stenting and states this was 20 years ago or so. He states he came in because of increased shortness breath or last few days. His also contracted Covid and has been hospitalized as well. He admits to mild cough and has been more short of breath however also believes it was somewhat related to his COPD. EKG showed sinus tachycardia with PACs and left axis deviation and nonspecific ST depressions in the lateral leads. X-ray shows mild cardiomegaly and diffuse interstitial changes with possible pulmonary and infiltrate versus pulmonary edema. Limited 2-D echo shows EF 55-60% with mild to moderately dilated right ventricle. 02/18/2022 Patient seen at bedside, he is confused. No following commands. Is alert, not answering questions appropriately. Refusing examination this morning. His O2 has been weaned but overnight had increased oxygen requirements at 15L High flow nasal cannula. Continues to not answer questions appropriately. BP was elevated yesterday and medications were adjusted. Blood pressure 192/89 this morning, patient agitated His currently maintained on carvedilol 25 mg twice a day, aspirin 81 mg daily, lisinopril 30 mg daily. PHYSICAL EXAMINATION Vital signs reviewed. CONSTITUTIONAL: No apparent distress, chronically ill appearing, on oxygen, poor historian LUNGS: Rhonchi bilaterally to auscultation HEART EXAMINATION: Regular rate and rhythm. EXTREMITIES: no lower extremity edema and no calf tenderness. NEUROLOGIC EXAMINATION: Patient is awake, lethargic, confused, agitated ASSESSMENT Acute on chronic heart failure with preserved ejection fraction Non-STEMI likely type II MO secondary to COVID-19, hypoxia, sepsis Reported history of MO however no history of stenting. Patient poor historian Acute on chronic respiratory failure Acute COVID-19 pneumonia Altered mental status Previous tobacco abuse Abnormal EKG Mildly dilated right ventricle likely related to underlying COPD, d-dimer normal PLAN Recommend continuing current medications Prognosis is guarded No further changes from a cardiology perspective. Rest of management per primary We will follow the patient as needed. Please reconsult if needed. Nurse practitioner note has been reviewed by physician. Signing provider agrees with the documented findings, assessment, and plan of care. Objective - Vital Signs Vital signs: Vital Signs Temp 97.6 F 02/18/22 09:32 Pulse 79 02/18/22 09:32 Resp 20 02/18/22 09:32 BP 192/89 02/18/22 09:32 Pulse Ox 91 L 02/18/22 09:32 FiO2 60 02/16/22 03:34 Intake & Output 02/17/22 02/18/22 02/18/22 18:59 06:59 18:59 Intake Total 200 Output Total 200 200 Balance -200 0 Weight 66.6 kg Intake: Oral 200 Output: Urine 200 200 Other: Voiding Method Bedside Commode Bedside Commode Bedside Commode - Labs CBC & Chem 7: 02/13/22 08:59 02/18/22 07:01 Labs: Abnormal Lab Results - Last 24 Hours (Table) 02/17/22 02/17/22 02/18/22 Range/Units 16:39 20:44 06:07 VBG pH (7.31-7.41) VBG pCO2 (37-51) mmHg VBG HCO3 (24-28) mmol/L Chloride (98-107) mmol/L Carbon Dioxide (22-30) mmol/L BUN (9-20) mg/dL Glucose (74-99) mg/dL POC Glucose (mg/dL) 143 H 163 H 153 H (70-110) mg/dL Calcium (8.4-10.2) mg/dL Magnesium (1.6-2.3) mg/dL 02/18/22 02/18/22 02/18/22 Range/Units 07:01 07:01 11:47 VBG pH 7.47 H (7.31-7.41) VBG pCO2 61 H (37-51) mmHg VBG HCO3 44 H (24-28) mmol/L Chloride 92 L (98-107) mmol/L Carbon Dioxide 45 H* (22-30) mmol/L BUN 38 H (9-20) mg/dL Glucose 154 H (74-99) mg/dL POC Glucose (mg/dL) 145 H (70-110) mg/dL Calcium 8.3 L (8.4-10.2) mg/dL Magnesium 2.4 H (1.6-2.3) mg/dL Microbiology - Last 24 Hours (Table) 02/11/22 17:15 Blood Culture - Final Blood No Growth after 144 hours 02/11/22 17:10 Blood Culture - Final Blood No Growth after 144 hours
[2022-02-18 17:06] LABS: Glucose,Whole Blood 158 mg/dL (70-110)
[2022-02-18 19:48] LABS: Glucose,Whole Blood 148 mg/dL (70-110)
[2022-02-19] MEDS: HYDROcodone/APAP 5-325MG 1 EACH TAB PO PRN (04:05)
[2022-02-19 05:58] LABS: Glucose,Whole Blood 150 mg/dL (70-110)
[2022-02-19] MEDS: methylPREDNISolone SOD SUCCI 125 MG/2 ML VIAL IV SCH ×4 (06:18→23:59)
[2022-02-19] MEDS: carvediloL 12.5 MG TAB PO SCH ×2 (06:18→15:55)
[2022-02-19 07:07] LABS: VBG PH 7.52 (7.31-7.41)
[2022-02-19 07:35] LABS: African American GFR (CKD) >90 (>60 ml/min/1.73 sqM); Blood Urea Nitrogen 45 mg/dL (9-20); Calcium 8.3 mg/dL (8.4-10.2); Chloride 95 mmol/L (98-107); Glucose 156 mg/dL (74-99); Non-African American GFR(CKD) 87 (>60 ml/min/1.73 sqM); Potassium 3.7 mmol/L (3.5-5.1); Sodium 146 mmol/L (137-145)
[2022-02-19 07:43] LABS: Anion Gap 10 mmol/L
[2022-02-19] MEDS: ASPIRIN 81 MG PO SCH (08:16)
[2022-02-19] MEDS: LEVOFLOXACIN 500 MG TAB PO SCH (08:16)
[2022-02-19 08:17] LABS: Carbon Dioxide 41 mmol/L (22-30)
[2022-02-19] MEDS: ENOXAPARIN 40 MG/0.4 ML SYRINGE SQ SCH (08:17)
[2022-02-19] MEDS: amLODIPine 10 MG TAB PO SCH (08:17)
[2022-02-19] MEDS: GABAPENTIN 100 MG CAP PO SCH ×3 (08:17→22:01)
[2022-02-19] MEDS: lisinopriL 10 MG TAB PO SCH (08:17)
[2022-02-19] MEDS: TAMSULOSIN 0.4 MG CAP.ER.24H PO SCH (08:17)
[2022-02-19] MEDS: TIOTROPIUM 2.5 MCG INHALER INHALATION SCH (08:31)
[2022-02-19] MEDS: SYMBICORT 160-4.5 MCG INHALER INHALATION SCH ×2 (08:31→19:27)
[2022-02-19] MEDS: ALBUTEROL HFA INHALER INHALATION SCH ×4 (08:31→19:27)
--- NOTE | 2022-02-19 10:40 | P.PN ---
Subjective Progress Note Date: 02/19/22 Principal diagnosis: SOB Hospital Course: 76-year-old male with history of COPD on 2 L, prior cardiac arrest with anoxic brain injury presenting with dyspnea, confusion secondary to COVID pneumonia and bacterial pneumonia. Patient also being treated with COPD exacerbation in the setting of acute infection, and acute diastolic CHF exacerbation. Pulmonology and cardiology following patient. Continues to remain severely hypoxic, with increasing O2 requirement. No longer in CHF exacerbation, adequately diuresed. Patient now hypovolemic given poor oral intake and previous diuresis. Started on gentle IV fluids. Subjective: Patient seen and examined at bedside. No acute events overnight. Not much changed in terms of mental status or his respiratory function today compared to yesterday. He denies any worsening of his SOB. He denies further chest pain, abdominal pain, diarrhea or constipation. His oral intake remains poor. Pertinent positives and negatives as discussed above, a complete review of systems was performed and all other systems are negative. Vitals Signs Reviewed. General: nontoxic, no acute distress, appears at stated age, Derm: warm, dry Head: atraumatic, normocephalic, symmetric Eyes: EOMI, no lid lag, anicteric sclera Mouth: no lip lesion, mucus membranes moist Cardiovascular: S1S2 reg, no murmur Lungs: bilateral rales throughout , no accessory muscle use, 14L NC Abdominal: soft, nontender to palpation, no guarding, no appreciable organomegaly Ext: no gross muscle atrophy, no edema, no contractures Neuro: CN II-XI grossly intact, no focal neuro deficits Psych: Drowsy, oriented 1 Assessment and Plan: Acute on chronic hypoxic respiratory failure Acute COPD exacerbation COVID-19 pneumonia Possible Bacterial pneumonia -Continue supplemental oxygen, continue to wean -Elevated pro-calcitonin, received 7 days of levofloxacin, will discontinue -Continue bronchodilators and steroids -O2 requirement still high -out of the window for monoclonal and remdisivir -CTA negative for PE -pulmonology following Metabolic alkalosis Hypernatremia - likely contraction from aggressive diuresis and poor oral intake -Started on gentle IV fluids Acute encephalopathy -Prior history of anoxic brain injury secondary to cardiac arrest -no focal neurological deficits -on reduced dose of gabapentin -reduced dose of norco Acute diastolic CHF exacerbation - resolved -Normal EF 55-60%, mild to moderately dilated right ventricle -Cardiology consulted -lasix held, appears hypovolemic -I's and O's, monitor urine Elevated troponin likely demand ischemia -Denies chest pain Essential hypertension -Continue home medications -Started on amlodipine F: Oral E: Replete as needed N: Heart healthy A: As tolerated DVT ppx: Lovenox Code status: DO NOT RESUSCITATE/DO NOT INTUBATE, per son, this was patient's and his 's wishes prior to his hospitalization. Anticipated discharge place: Home Anticipated discharge time: 2+ days Objective - Vital Signs Vital signs: Vital Signs Temp 97.6 F 02/19/22 08:00 Pulse 67 02/19/22 08:00 Resp 26 H 02/19/22 08:00 BP 187/79 02/19/22 08:00 Pulse Ox 92 L 02/19/22 08:00 FiO2 60 02/16/22 03:34 Intake & Output 02/18/22 02/19/22 02/19/22 18:59 06:59 18:59 Intake Total 260 480 240 Output Total 200 1650 Balance 60 -1170 240 Intake: IV 10 Invasive Line 3 10 Oral 250 480 240 Output: Urine 200 1100 Straight 550 Post Void Residual 550 Other: Voiding Method Bedside Commode Bedside Commode Urinal - Labs CBC & Chem 7: 02/13/22 08:59 02/19/22 06:03 Labs: Abnormal Lab Results - Last 24 Hours (Table) 02/18/22 02/18/22 02/18/22 Range/Units 11:47 16:43 19:45 VBG pH (7.31-7.41) VBG pCO2 (37-51) mmHg VBG HCO3 (24-28) mmol/L Sodium (137-145) mmol/L Chloride (98-107) mmol/L Carbon Dioxide (22-30) mmol/L BUN (9-20) mg/dL Glucose (74-99) mg/dL POC Glucose (mg/dL) 145 H 158 H 148 H (70-110) mg/dL Calcium (8.4-10.2) mg/dL 02/19/22 02/19/22 02/19/22 Range/Units 05:57 06:03 06:03 VBG pH 7.52 H (7.31-7.41) VBG pCO2 53 H (37-51) mmHg VBG HCO3 43 H (24-28) mmol/L Sodium 146 H (137-145) mmol/L Chloride 95 L (98-107) mmol/L Carbon Dioxide 41 H* (22-30) mmol/L BUN 45 H (9-20) mg/dL Glucose 156 H (74-99) mg/dL POC Glucose (mg/dL) 150 H (70-110) mg/dL Calcium 8.3 L (8.4-10.2) mg/dL
[2022-02-19 11:25] VITALS: TEMP 98.8
[2022-02-19 11:47] LABS: Glucose,Whole Blood 165 mg/dL (70-110)
--- NOTE | 2022-02-19 12:41 | P.PN ---
Subjective Progress Note Date: 02/12/22 Principal diagnosis: COPD, coronavirus infection This is a 76-year-old male patient was a poor historian was brought into the emergency room yesterday with confusion, shortness of breath and positive for COVID-19. He has not vaccinated. His is also positive and hospitalized here. He has a history of oxygen dependent COPD and, hypertension, BPH, anxiety. Chest x-ray reveals mild cardiomegaly, diffuse interstitial changes, patchy bilateral opacities and trace effusions. Echocardiogram revealed normal ejection fraction 55-60%. White count 9.8. Hemoglobin 11.7. Sodium 133. Potassium 4.0. Bicarb 29. BUN 26. Creatinine 0.90. Troponin 1.67. Pro- calcitonin 35.7. Ornelas virus by PCR positive. Arterial blood gases were drawn on 40% FiO2 with a P O2 of 70, pCO2 53, pH 7.34. He is seen in consultation on the selective care unit. He is currently sitting up in bed. Awake and alert. Confused at times. Difficult to obtain accurate information from him. He is currently maintaining O2 saturations in the low 90s on 5 L high flow nasal cannula. He is afebrile. Hemodynamically stable. The patient is seen today 02/13/2022 in follow-up on the selective care unit. He is currently sitting up in bed. Awake and alert in no acute distress. Feeling better today compared to yesterday. Maintaining O2 saturations in the 90s on 5 L/m per nasal cannula. He's been afebrile. Hemodynamically stable. Blood cultures reveal no growth. white count 14.6. Hemoglobin 11.0. Sodium 131. Potassium 3.9. Bicarb 32. BUN 45. Creatinine 0.93. Glucose 126. Follo w-up troponin 0.848. He is continued on Symbicort, Spiriva,albuterol, IV Solu- Medrol, IV diuretics. Antibiotics in the form of Levaquin. Lovenox for DVT prophylaxis. The patient is seen today 02/14/2022 in follow-up on the selective care unit. He is currently sitting up in a chair at the bedside. Awake and alert in no acute distress. He is maintaining O2 saturations in the low 90s on 6 L high flow nasal cannula. Chest x-ray showing some interval improvement in the diffuse patchy bilateral interstitial and airspace opacities. blood cultures reveal no growth to date. Urinalysis clean. He is continued on Symbicort, Spiriva, albuterol, IV Solu-Medrol. Remains on Lovenox for DVT prophylaxis. Continued on Levaquin. He remains on IV Lasix 40 mg every 12 hours. Remains in a negative balance. Progress note dated 02/15/2022. The patient is currently on 15 L high flow nasal cannula. The patient is not receiving any IV fluids. The patient was recently turned up to the 15 L high flow cannula, because on 5 L of nasal oxygen, his saturations were only 84%. The patient appeared confused according to the respiratory therapist. Current laboratory includes a venous blood gas showing a pCO2 of 67 and a normal pH is 7.42. In addition, sodium 134, potassium 3.2, chlorides 84, CO2 39, anion gap 11, BUN 39, and creatinine 0.83. Calcium was 7.7. Chest x-ray shows a right basilar infiltrates and/or atelectasis. Progress note dated 02/16/2022. 76-year-old male again seen in room 369. Currently, the patient's oxygenation has been weaned down to 9 L high flow. He had a CT angiogram last night which was negative for pulmonary embolism. We will DC his Decadron in favor of Solu-Medrol, 60 mg IV push every 6 hours. He has used a BiPAP device, at 12/6 and 60%, intermittently. Yesterday, I was called by the hospitalist, who thought the patient might benefit from REM. Because of the amount of oxygen he is on, and because of symptoms present for more than 7 days, the patient was not a candidate for REM. In addition, he was not a candidate for TOCI. Today's labs include a venous blood gas showing a pCO2 of 57 and a pH of 7.47. Sodium 136, potassium 3.6, chloride 87, CO2 40, BUN 42, and creatinine 0.96. Progress note dated 02/17/2022. 76-year-old male again seen in room 369. Patient is currently on a liter high flow oxygen. He is not receiving any IV fluids. The patient has a sitter in the room with him. He does appear to be somewhat confused. The patient remains a full code. No new laboratory data today other than a blood sugar of 167. Blood cultures are negative. A CT angiogram that was recently done, was negative for pulmonary embolism. The patient's Decadron was changed to Solu- Medrol. The patient was not a candidate for REM, or TOCI. Progress note dated 02/18/2022. 76-year-old male seen again in room 369. Currently, he's on 11 L high flow ox ygen. He's not receiving any IV fluids. I believe he is about the same today as he was yesterday. He does have a sitter. A venous blood gas shows a pCO2 of 61 and a pH is 7.47. Sodium 142, potassium 3.7, chlorides 92, CO2 5, BUN 38, creatinine 0.83. Blood cultures are negative. Chest x-ray from February 16 showed diffuse bilateral infiltrates, that are stable. Progress note dated 02/19/2022. 76-year-old male again seen in room 369. He is currently on 13 L high flow oxygen. The patient is not receiving any IV fluids. Blood cultures were negative. Laboratory data today includes a sodium 146, potassium 3.7, chlorides 95, CO2 41, anion gap 10, BUN 45, and creatinine 0.82. Glucose 156. Calcium 8.3. Venous blood gases show a pCO2 of 53, and a pH is 7.52. This is consistent with metabolic alkalosis. The patient is doing about the same. The patient does have a sitter today. The patient is a DO NOT RESUSCITATE patient. Objective - Vital Signs Vital signs: Vital Signs Temp 98.8 F 02/19/22 08:00 Pulse 67 02/19/22 08:00 Resp 26 H 02/19/22 08:00 BP 187/79 02/19/22 08:00 Pulse Ox 92 L 02/19/22 08:00 FiO2 60 02/16/22 03:34 Intake & Output 02/18/22 02/19/22 02/19/22 18:59 06:59 18:59 Intake Total 260 480 250 Output Total 200 1650 Balance 60 -1170 250 Intake: IV 10 10 Invasive Line 3 10 10 Oral 250 480 240 Output: Urine 200 1100 Straight 550 Post Void Residual 550 Other: Voiding Method Bedside Commode Bedside Commode Urinal Urinal - Exam No acute distress, a bit confused, currently on 13 L high flow oxygen. HEENT examination is grossly unremarkable. Neck supple. Full range of motion. No adenopathy thyromegaly or neck vein distention. Cardiovascular examination reveals regular rhythm rate. S1-S2 normal. No S3 or S4. No discernible murmur noted. Heart sounds are distant. Heart rate 83 bpm. Lungs reveal scattered rhonchi and crackles. Breath sounds equal bilaterally. No wheezes. Saturations are 92% on 13 L high flow. Abdomen soft bowel sounds are heard. No masses or tenderness. Extremities are intact. No cyanosis clubbing or edema. Skin is without rash or lesion. Neurologic examination is brief but nonfocal. - Labs CBC & Chem 7: 02/13/22 08:59 02/19/22 06:03 Labs: Abnormal Lab Results - Last 24 Hours (Table) 02/18/22 02/18/22 02/19/22 Range/Units 16:43 19:45 05:57 VBG pH (7.31-7.41) VBG pCO2 (37-51) mmHg VBG HCO3 (24-28) mmol/L Sodium (137-145) mmol/L Chloride (98-107) mmol/L Carbon Dioxide (22-30) mmol/L BUN (9-20) mg/dL Glucose (74-99) mg/dL POC Glucose (mg/dL) 158 H 148 H 150 H (70-110) mg/dL Calcium (8.4-10.2) mg/dL 02/19/22 02/19/22 02/19/22 Range/Units 06:03 06:03 11:44 VBG pH 7.52 H (7.31-7.41) VBG pCO2 53 H (37-51) mmHg VBG HCO3 43 H (24-28) mmol/L Sodium 146 H (137-145) mmol/L Chloride 95 L (98-107) mmol/L Carbon Dioxide 41 H* (22-30) mmol/L BUN 45 H (9-20) mg/dL Glucose 156 H (74-99) mg/dL POC Glucose (mg/dL) 165 H (70-110) mg/dL Calcium 8.3 L (8.4-10.2) mg/dL Assessment and Plan Assessment: Generalized weakness and confusion, secondary to coronavirus infection. Acute on chronic hypoxemic respiratory failure, secondary to coronavirus pneumonia, as well as diastolic congestive heart failure. Elevated troponin, may relate to supply/demand mismatch. Advanced oxygen-dependent COPD. History of hypertension. History of anxiety. BPH. Plan: Plan dated 02/15/2022. The patient's oxygen was turned up because his saturation on 5 L, was only 84 percent. In addition, he seemed a bit confused according to respiratory therapy. The patient will continue on his current medications including Symbicort, Spiriva, albuterol, and Solu-Medrol. The patient will also continue on antibiotics. We will continue GI and DVT prophylaxis. Labs, x-rays, and medications are reviewed. Prognosis is certainly guarded. No additional recommendations are made. We will continue to follow along. Plan dated 02/16/2022. The patient's oxygen was initially at 15 L. Now is down to 9 L. The patient is not a candidate for REM or TOCI. The patient did have a CT angiogram which was negative for pulmonary embolism. We will continue GI and DVT prophylaxis, as well as his other medications that can be discontinued in favor of Solu-Medrol. Additional recommendations and suggestions are forthcoming. We will continue to follow. Plan dated 02/17/2022. The patient's oxygen is set at 12 L high flow. The patient is not requiring any IV fluids. Saturations are between 93 and 95%. Blood pressure is 159/70. Heart rate is 71, respiratory rate 18, his temperature is normal. No new labs or x-rays to review. The patient remains on albuterol inhaler, Symbicort, Levaquin, and Solu-Medrol. He also is getting Spiriva. Chest x-ray from February 16 shows diffuse and stable interstitial changes. His overall prognosis remains very guarded. Plan dated 02/18/2022. The patient is currently on 11 L high flow oxygen. Saturations are in the low 90s. Labs, x-rays, and medications all reviewed. He's currently on albuterol inhaler, Symbicort, Solu-Medrol, and Spiriva. We will continue to follow make recommendations along the way. Overall prognosis remains guarded. The patient will have a follow-up chest x-ray in the morning. We will continue with GI and DVT prophylaxis. Plan dated 02/19/2022. The patient's oxygen requirements have increased to 13 L high flow. The patient is confused. Labs, x-rays, medications are reviewed. The venous blood gases also reviewed. The patient remains on albuterol, Symbicort, Solu-Medrol, and Spiriva. Prognosis is very poor. The patient is now a DO NOT RESUSCITATE patient. We will continue to follow. A chest x-ray is ordered for tomorrow. No additional recommendations are made. Time with Patient: Less than 30
[2022-02-19] MEDS ORDERED: LORazepam 1 MG/0.5 ML VIAL IV STA (14:58)
[2022-02-19] MEDS: LACTATED RINGERS 1,000 ML IV SCH (15:56)
[2022-02-19] MEDS ORDERED: HALOPERIDOL LACTATE 5 MG/ML 1 ML VIAL IVP STA (16:38)
[2022-02-19 16:52] LABS: Appearance,Urine Clear (Clear); Bilirubin,Urine Negative (Negative); Blood,Urine Trace (Negative); Color,Urine Yellow; Glucose,Urine (UA) Negative (Negative); Ketones,Urine 1+ (Negative); Leukocyte Esterase,Urine Moderate (Negative); Mucus,Urine Rare /hpf; Nitrite,Urine Negative (Negative); PH, Urine 6.5 (5.0-8.0); Protein,Urine Trace (Negative); RBC,Urine 2 /hpf (0-5); Specific Gravity,Urine 1.025 (1.001-1.035); Squamous Epithelial Cell,Urine <1 /hpf (0-4); Urobilinogen,Urine <2.0 mg/dL (<2.0); WBC,Urine 12 /hpf (0-5)
[2022-02-19] MEDS ORDERED: HALOPERIDOL LACTATE 5 MG/ML 1 ML VIAL IM PRN (17:00)
[2022-02-19] MEDS ORDERED: MORPHINE SULFATE 4 MG/ML SYRINGE IVP STA (19:32)
[2022-02-19 20:16] VITALS: BP 147/66
[2022-02-19] MEDS ORDERED: ONDANSETRON 4 MG/2 ML VIAL IVP PRN (20:34)
[2022-02-19] MEDS ORDERED: MELATONIN 3 MG TABLET PO SCH (21:00)
[2022-02-19] MEDS ORDERED: SCOPOLAMINE 1 MG/72 HR PATCH TRANSDERM SCH (21:00)
[2022-02-19] MEDS ORDERED: QUEtiapine 25 MG TAB PO SCH (21:00)
[2022-02-19] MEDS ORDERED: LORazepam 1 MG/0.5 ML VIAL IV PRN (21:00)
[2022-02-19] MEDS ORDERED: DRY MOUTH SPRAY 44.3 SPRAY/44.3 ML SPRAY MUCOUS MEM PRN (22:00)
[2022-02-19] MEDS: MORPHINE SULFATE (100 MG/2 ML) 100 MG in SODIUM CHLORIDE 0.9% 100 ML IV SCH (22:19)
[2022-02-20 00:04] VITALS: PULSE 96; RESP 20
[2022-02-20] MEDS: LACTATED RINGERS 1,000 ML IV SCH (03:45)
[2022-02-20] MEDS: MORPHINE SULFATE (100 MG/2 ML) 100 MG in SODIUM CHLORIDE 0.9% 100 ML IV SCH (06:20)
[2022-02-20] MEDS: methylPREDNISolone SOD SUCCI 125 MG/2 ML VIAL IV SCH (07:01)
[2022-02-20] MEDS: carvediloL 12.5 MG TAB PO SCH (07:02)
[2022-02-20] MEDS: ALBUTEROL HFA INHALER INHALATION SCH (08:21)
[2022-02-20] MEDS: SYMBICORT 160-4.5 MCG INHALER INHALATION SCH (08:22)
[2022-02-20] MEDS: TIOTROPIUM 2.5 MCG INHALER INHALATION SCH (08:22)
--- NOTE | 2022-02-20 11:14 | P.DS ---
Providers Date of admission: 02/11/22 11:52 Expected date of discharge: 02/20/22 Attending physician: Pankaj Aceves MD Consults: 02/11/22 15:50 Consult Physician Routine Consulting Provider: Kirby Moreno Consult Reason/Comments: sob Do you want consulting provider notified?: Yes 02/13/22 07:56 Consult Physician Routine Consulting Provider: Nish Cross Consult Reason/Comments: high trops Do you want consulting provider notified?: Yes Primary care physician: Mook Christensen MD Hospital Course: Discharge Diagnosis: Acute on chronic hypoxic respiratory failure COVID-19 pneumonia Bacterial pneumonia Acute COPD exacerbation Acute diastolic CHF exacerbation Elevated troponin Hypertension Metabolic alkalosis Encephalopathy Hypernatremia Hospital Course: 76-year-old male with history of COPD on 2 L, prior cardiac arrest with anoxic brain injury presenting initially with dyspnea, confusion secondary to COVID pneumonia and bacterial pneumonia. Patient was also being treated with COPD exacerbation in the setting of acute infection, and acute diastolic CHF exacerbation. Pulmonology and cardiology were consulted. He continued to remain severely hypoxic, with increasing O2 requirements. Despite aggressive therapy, unable to wean down oxygen. For COVID Pneumonia and bacterial pneumonia, patient was on steroids as well as antibiotics. For CHF exacerbation he was on IV diuretics. Over the course of his hospitalization, patient became more encephalopathic and agitated. In person discussion was done with family at bedside. Per family, patient had previously expressed to be DO NOT RESUSCITATE/DO NOT INTUBATE. Over the course of his last hospitalization, he continued to require more respiratory support. Overnight hospitalist and family agreed to change his care to only comfort measures. Patient at 0745 on 02/20/22. Plan - Discharge Summary Discharge Rx Participant: Yes New Discharge Prescriptions: No Action predniSONE [Deltasone] 20 mg PO DAILY carvediloL [Coreg] 25 mg PO BID lisinopriL [Prinivil] 10 mg PO DAILY Gabapentin [Neurontin] 300 mg PO QID HYDROcodone/APAP 10-325MG [[place] 10-325] 1 tab PO TID ALPRAZolam [Xanax] 2 mg PO BID Ipratropium-Albuterol Nebulize [Duoneb 0.5 mg-3 mg/3 ml Soln] 3 ml INHALATION RT-Q6H PRN PRN Reason: Shortness Of Breath Tamsulosin HCl [Flomax] 0.4 mg PO DAILY Discharge Medication List ALPRAZolam [Xanax] 2 mg PO BID 02/11/22 [History] Gabapentin [Neurontin] 300 mg PO QID 02/11/22 [History] HYDROcodone/APAP 10-325MG [[place] 10-325] 1 tab PO TID 02/11/22 [History] Ipratropium-Albuterol Nebulize [Duoneb 0.5 mg-3 mg/3 ml Soln] 3 ml INHALATION RT-Q6H PRN 02/11/22 [History] Tamsulosin HCl [Flomax] 0.4 mg PO DAILY 02/11/22 [History] carvediloL [Coreg] 25 mg PO BID 02/11/22 [History] lisinopriL [Prinivil] 10 mg PO DAILY 02/11/22 [History] predniSONE [Deltasone] 20 mg PO DAILY 02/11/22 [History] Follow up Appointment(s)/Referral(s): Nonstaff,Physician [REFERRING] - 1-2 days Discharge Disposition: - Preliminary Cause of Preliminary Cause of : Covid pneumonia
--- NOTE | 2022-02-21 10:51 | CDI ---
Documentation Clarification Form Date: 02/21/2022 10:36:00 AM From: Eliza Robledo Admit Date: 02/11/2022 11:52:00 AM Patient Name: Erik Mckeon Visit Number: [id number] Discharge Date: 02/20/2022 10:40:00 AM ATTENTION: The Clinical Documentation Specialists (CDI) and [facility] Coding Staff appreciate your assistance in clarifying documentation. Please respond to the clarification below the line at the bottom and electronically sign. The CDI & [facility] Coding staff will review the response and follow-up if needed. Please note: Queries are made part of the Legal Health Record. If you have any questions, please contact the author of this message via ITS. Dr. Pankaj Aceves Cardiology consult and PN's document sepsis throughout the chart. As attending physician additional clarification is needed. Please clarify if patient had sepsis or was sepsis ruled out. History/Risk Factors: Covid 19 pneumonia, bacterial pneumonia, NSTEMI type II, respiratory failure on home O2 Clinical Indicators: WBC: 12.5 Lactic acid: 1.05 Vitals signs: 98.2 F, 112 bpm, 30, 101/64, 97% NRB 15L Treatment: O2 unable to wean down, Steroids antibiotics and IV diuretics ID Consult: none Antibiotics: levaquin In your professional opinion, please clarify if these findings signify one of the following conditions: [ ] Sepsis due to Covid pneumonia POA [ ] Sepsis, Not POA [ ] Sepsis ruled out [ ] Severe Sepsis with organ failure [ ] Septic Shock [ ] SIRS, without underlying infectious process [ ] Other, please specify [ ] Unable to determine SIRS Criteria: 2 or more of the following may indicate SIRS -Temperature < 96.8F (36C) or > 101.0F (38.3C) -Heart Rate > 90 bpm -Respiratory Rate > 20 breaths/min or PaCO2 < 32 mmHg -White Blood Cell Count > 12,000 or < 4,000 cells/mm3 or > 10% bands Sepsis due to Covid pneumonia ZACARIAS VANESSAD
== END 2022-02-20 10:40 | disposition expired | DRG 871 ==
LOC: EC 09:13 → SUPCPDRO 09:13 → 3SCARD 11:52
PROVIDERS: ADMIT Internal Medicine; ATTEND Internal Medicine
PROC: 5A09457 Assistance with Respiratory Ventilation, 24-96 Consecutive Hours, Continuous Positive Airway Pressure (ICD-10-PCS; principal; 2022-02-16)
DX: A41.89 Other specified sepsis (principal); G92.8 Other toxic encephalopathy; U07.1 COVID-19; I21.A1 Myocardial infarction type 2; I50.33 Acute on chronic diastolic (congestive) heart failure; J12.82 Pneumonia due to coronavirus disease 2019; J15.9 Unspecified bacterial pneumonia; J96.21 Acute and chronic respiratory failure with hypoxia; E87.0 Hyperosmolality and hypernatremia; E87.3 Alkalosis; G93.1 Anoxic brain damage, not elsewhere classified; J44.0 Chronic obstructive pulmonary disease with (acute) lower respiratory infection; J44.1 Chronic obstructive pulmonary disease with (acute) exacerbation; G93.40 Encephalopathy, unspecified; R64 Cachexia; I11.0 Hypertensive heart disease with heart failure; I49.1 Atrial premature depolarization; R45.1 Restlessness and agitation; Z51.5 Encounter for palliative care; Z66 Do not resuscitate; E83.42 Hypomagnesemia; E86.1 Hypovolemia; F41.9 Anxiety disorder, unspecified; N40.0 Benign prostatic hyperplasia without lower urinary tract symptoms; Z86.74 Personal history of sudden cardiac arrest; Z28.310 Unvaccinated for COVID-19; Z99.81 Dependence on supplemental oxygen; I25.2 Old myocardial infarction; Z79.82 Long term (current) use of aspirin; Z79.899 Other long term (current) drug therapy; Z87.891 Personal history of nicotine dependence; Z68.22 Body mass index [BMI] 22.0-22.9, adult
CPT/HCPCS: 36415; 36600; 71045; 71275; 80048; 80053; 81001; 81003; 82803; 82805; 83605; 83735; 83880; 84132; 84145; 84484; 85025; 85379; 85610; 85730; 87040; 87086; 87635; 93005; 93308; 94640; 94660; 94760; 96365; 96372; 96375; 96376; 99291